=== PATIENT | male | born 1945 | race American Indian/Alaskan Native ===

== ENCOUNTER 2019-02-27 13:50 | Inpatient (IN) | payer MEDICARE, OTHER ==
[~2019-02-27] VITALS: Ht 152.4 cm; Wt 95.4 kg
[~2019-02-27 13:50] MED LIST: ALBU2.5V5 NEB; ALBU3IS INH; ALBU90OI INH; ASPI81CH PO; ATOR40TA PO; Augmentin 875-1 EACH PO; CARV3.125 PO; ENTRESTO 49 MG1 EACH PO; FISH1000 PO; FURO20 PO; GLUCOSAMINE PO; GUAI600T33 PO; HYDACE5 PO; METF850 PO; MSM PO; POTCHL10ER PO; ROSU10TA PO; ROSU5 PO; TORSE20 PO; TRIHYD253B PO
[2019-02-27 14:43] LABS: BASOPHILS ABSOLUTE AUTO 0.02 K/mm3 (0.00-0.23); BASOPHILS PERCENT AUTO 0 % (0-2); EOSINOPHILS ABSOLUTE AUTO 0.12 K/mm3 (0.00-0.68); EOSINOPHILS PERCENT AUTO 2 % (0-6); Hematocrit 40.6 % (37.0-53.0); Hemoglobin 12.9 g/dL (13.5-17.5); IMMATURE GRAN ABSOLUTE AUTO 0.03 K/mm3 (0.00-0.10); IMMATURE GRAN PERCENT AUTO 1 % (0-1); LYMPHOCYTES ABSOLUTE AUTO 0.86 K/mm3 (0.84-5.20); LYMPHOCYTES PERCENT AUTO 15 % (21-46); MONOCYTES ABSOLUTE AUTO 0.48 K/mm3 (0.16-1.47); MONOCYTES PERCENT AUTO 8 % (4-13); Mean Corpuscular HGB 29.5 pg (26.0-34.0); Mean Corpuscular HGB Conc 31.8 g/dL (31.5-36.5); Mean Corpuscular Volume 93 fL (80-100); Mean Platelet Volume 8.6 fL (9.1-12.4); NEUTROPHILS ABSOLUTE AUTO 4.35 K/mm3 (1.96-9.15); NEUTROPHILS PERCENT AUTO 74 % (41-73); Platelet Count 273 K/mm3 (150-400); RDW Coefficient Variation 14.4 % (11.7-14.2); RDW Standard Deviation 49.5 fL (35.1-46.3); Red Blood Cell Count 4.38 M/mm3 (4.30-5.90); White Blood Cell Count 5.86 K/mm3 (4.00-11.30)
[2019-02-27 14:52] LABS: Alanine Aminotransfer (ALT/SGP 29 U/L (12-78); Albumin, Blood 3.2 g/dL (3.4-5.0); Albumin/Globulin Ratio 0.8 (0.8-1.8); Alk Phos 108 U/L (50-136); Anion Gap 7 mmol/L (6-16); Aspartate Aminotrans (AST/SGOT 18 U/L (12-37); Bilirubin, Total 0.5 mg/dL (0.1-1.0); Blood Urea Nitrogen 27 mg/dL (8-24); Bun/Creatinine Ratio 24.1 (12.0-20.0); CO2, Blood 22 mmol/L (21-32); Calcium, Blood 8.3 mg/dL (8.5-10.1); Chloride, Blood 110 mmol/L (98-108); Creatinine, Blood 1.12 mg/dL (0.60-1.20); Globulin, Blood 4.2 g/dL (2.2-4.0); Glomerular Filtration Rate >60 (60-); Glucose, Blood 121 mg/dL (70-99); Potassium, Blood 4.4 mmol/L (3.5-5.5); Sodium, Blood 139 mmol/L (136-145); Total Protein, Blood 7.4 g/dL (6.4-8.2)
--- NOTE | 2019-02-28 03:52 | NUR ---
NOC SHIFT SUMMARY PT ADMITTED THIS NIGHT FOR R SIDED WEAKNESS STARTING SOMETIME AROUND 0400 THE MORNING OF 02/27. CT SCAN DOES NOT SHOW ANY ACUTE EVENTS. HE IS ALERT AND ORIENTED TO PERSON PLACE AND FAMILY. HISTORY OF METH USE. CAME TO FLOOR AT 2004. DAUGHTER AND SON HAVE BEEN IN TO VISIT HIM. HE HAS SLEPT ON AND OFF THIS NIGHT. CONTINENT FOR THE MOST PART BUT HAS WET THE BED. HE IS IRRITABLE WITH CARE. PRESENTLY APPEARS IN NO ACUTE DISTRESS. ABLE TO MOVE RIGHT ARM AND LEG WELL. SUPERVISOR NUT PROCESSING STRENGTH ONLY SLIGHTLY WEAKER ON THAT SIDE. VSS. DAUGHTER CONFIRMS HISTORY OF BLINDNESS IN L EYE AFTER ACCIDENT. WILL CONTINUE TO MONITOR.
[2019-02-28 07:44] LABS: U Amphetamine Screen DETECTED; U Barbituate Screen Not Detected; U Benzodiazapine Screen Not Detected; U Buprenorphine Screen Not Detected; U Cannabinoids Screen Not Detected; U Cocaine Screen Not Detected; U Methadone Screen Not Detected; U Methamphetamine Screen DETECTED; U Opiates Screen Not Detected; U Oxycodone Screen Not Detected; U Phencyclidine Screen Not Detected; U Propoxyphene Screen Not Detected
--- NOTE | 2019-02-28 18:37 | NUR ---
SHIFT SUMMARY: NO ACUTE CHANGES TO REPORT THIS SHIFT. PT A&O; IRRITABLE; UNCOOPERATIVE WITH CARE & INTERVENTIONS-REFUSAL TO USE FWW, FREQUENTLY REMOVING O2 NASAL CANNULA-EDUCATION PROVIDED. PT EVAL THIS SHIFT. WCTM.
--- NOTE | 2019-03-01 04:21 | NUR ---
73 YEAR OLD Male with rt upper extremity hemiparesis has carotid artery duplex and head MRI. MRI positive for acute stroke lt posterior, Less than 50% carotid artery occlusion. Pt has garbled speech but is very quick to respond and has appropriate answers. bHe has very unsteady gait but does insist on ambulationg. Able to feed self and use urinal. 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 Pt had rt facial droop but able to swallow without deficits. Has good strenght bilat ue and bilat le. PT had UA drug screen positive for METH. Has COPD is set up on oxygen 2 l nc prn. Tele monitor shows nsr with 1st degree block and pvcs. Irritable at times but apologizes later.
[2019-03-01 05:58] LABS: Albumin, Blood 2.8 g/dL (3.4-5.0); Anion Gap 8 mmol/L (6-16); Blood Urea Nitrogen 41 mg/dL (8-24); Bun/Creatinine Ratio 33.9 (12.0-20.0); CHOL/HDL RATIO 4.4; CO2, Blood 28 mmol/L (21-32); Calcium, Blood 8.4 mg/dL (8.5-10.1); Chloride, Blood 101 mmol/L (98-108); Cholesterol 154 mg/dL (50-200); Creatinine, Blood 1.21 mg/dL (0.60-1.20); Glomerular Filtration Rate >60 (60-); Glucose, Blood 173 mg/dL (70-99); HDL Cholesterol 35 mg/dL (>39); LDL/HDL RATIO 2.3; Low Density Lipoprotein Chol 81 mg/dL (0-110); Phosphorus, Blood 4.2 mg/dL (2.5-4.9); Potassium, Blood 3.8 mmol/L (3.5-5.5); Sodium, Blood 137 mmol/L (136-145); Triglycerides 189 mg/dL (30-160); Very Low Density Lipoprot Chol 37 mg/dL (6-32)
--- NOTE | 2019-03-01 11:35 | NUR ---
DNR STATUS: PATIENT REPORTS THIS MORNING THAT HE DOESN'T WANT TO BE "HOOKED TO ANY MACHINE" AND THAT HE WOULD LIKE TO BE DNR STATUS. DISCUSSED EACH ELEMENT OF DNR WITH THE PATIENT (CHEST COMPRESSIONS, INTUBATION, MEDICATION). PATIENT REITERATED THAT HE DOESN'T WANT ANY OF THAT. SPOKE WITH DR. NORMAN. NEW ORDER FOR DNR STATUS.
--- NOTE | 2019-03-01 12:33 | NUR ---
Echocardiogram completed.
--- NOTE | 2019-03-01 14:29 | NUR ---
CONSULT WITH DR. NEW: DR. NEW ASKED TO KNOW WHAT THE PATIENT'S ABNORMAL RHYTHM WAS DURING CAROTID DUPLEX YESTERDAY MORNING. PATIENT DID NOT HAVE TELEMETRY AT THAT TIME. SPOKE WITH PCU, PATIENT HAS BEEN IN THE 70S - 80S WITH OCCASIONAL PVCS SINCE THE PLACEMENT OF THE TELEMETRY. DR. NEW INFORMED.
--- NOTE | 2019-03-01 19:36 | NUR ---
END OF SHIFT SUMMARY: PATIENT DENIED PAIN THROUGHOUT SHIFT. PATIENT REPORTS THAT HE IS FEELING STRONGER THAN YESTERDAY. CONTINUES TO HAVE DIFFICULTY WITH FINE MOTOR MOVEMENT IN RIGHT HAND. EQUAL STRENGTH IN LEGS. PATIENT UP TO CHAIR. CONSULTATION CALLED TO DR. NEW (SEE NOTES). PATIENT DENIES NAUSEA, DIZZNESS OR SOB.
--- NOTE | 2019-03-02 04:16 | NUR ---
SHIFT SUMMARY- PT. A&O, NO DISTRESS NOTED. PT. HAS BEEN SITTING UP IN CHAIR T/O THE SHIFT, REFUSING TO RETURN BACK INTO BED. PT. X1 ASSIST WITH WALKER. HAS BEEN USING THE URINAL WHILE UP IN THE CHAIR W/O DIFFICULTY. INSTRUCTED PT. TO CALL FOR ASSISTANCE FOR AMBULATION OR BATHROOM USE, PT. VERBALIZED UNDERSTANDING. CALL LIGHT PLACED WITHIN REACH OF PT. FREQUENT ROUNDINGS MADE ON PT. TO ENSURE SAFETY. WILL CONT TO MONITOR.
[2019-03-02 04:58] LABS: Anion Gap 7 mmol/L (6-16); Blood Urea Nitrogen 36 mg/dL (8-24); Bun/Creatinine Ratio 32.1 (12.0-20.0); CO2, Blood 27 mmol/L (21-32); Calcium, Blood 8.5 mg/dL (8.5-10.1); Chloride, Blood 103 mmol/L (98-108); Creatinine, Blood 1.12 mg/dL (0.60-1.20); Glomerular Filtration Rate >60 (60-); Glucose, Blood 112 mg/dL (70-99); Phosphorus, Blood 3.7 mg/dL (2.5-4.9); Potassium, Blood 4.3 mmol/L (3.5-5.5); Sodium, Blood 137 mmol/L (136-145)
[2019-03-02] MEDS ORDERED: METF500 PO (12:31)
[2019-03-02] MEDS ORDERED: ENTRESTO 24 MG1 EACH PO (12:31)
[2019-03-02] MEDS ORDERED: CLOP75 PO (12:31)
[2019-03-02] MEDS ORDERED: Lipitor20 MG PO (12:31)
[2019-03-02] MEDS ORDERED: ASPI81CH PO (12:32)
--- NOTE | 2019-03-02 14:07 | NUR ---
PATIENT DISCHARGE THE PATIENT WAS DISCHARGED HOME WITH HIS SON, AFTER DISCHARGE INSTRUCTIONS WERE GIVEN TO THE PATIENT. THE PATIENT REFUSED HOME HEALTH ABND WAS VERY NON-COMPLIANT WITH DISCHARGE INSTRUCTIONS. THE PATIENT LEFT THE HOSPITAL VIA WHEELHAIR WITHOUT CONCERN OR COMPLAINT.
== END 2019-03-02 14:06 | disposition home health service (06) | DRG 64 ==
LOC: ER 13:50 → MEDS 17:46 → ENPENDDIS 03-02 12:14 → MEDS 03-02 14:06
PROVIDERS: Emergency Medicine; Internal Medicine; ADMIT Hospitalist
DX: I63.411 Cerebral infarction due to embolism of right middle cerebral artery (principal); J96.21 Acute and chronic respiratory failure with hypoxia; I50.22 Chronic systolic (congestive) heart failure; I11.0 Hypertensive heart disease with heart failure; E86.0 Dehydration; E66.9 Obesity, unspecified; Z68.39 Body mass index [BMI] 39.0-39.9, adult; F15.10 Other stimulant abuse, uncomplicated; J44.9 Chronic obstructive pulmonary disease, unspecified; Z87.891 Personal history of nicotine dependence; E11.9 Type 2 diabetes mellitus without complications; Z79.84 Long term (current) use of oral hypoglycemic drugs; Z79.4 Long term (current) use of insulin
CPT/HCPCS: 36415; 70450; 70551; 71046; 80053; 80061; 80069; 82947; 83036; 85025; 92610; 93005; 93010; 93880; 94760; 97110; 97112; 97116; 97162; 97166; 97530; 99285-25; A9270; C8929; J1650; Q9957

== ENCOUNTER 2019-03-18 21:43 | Inpatient (IN) | payer MEDICARE, OTHER ==
[~2019-03-18] VITALS: Ht 170.2 cm; Wt 99.8 kg
[~2019-03-18 21:43] MED LIST changes: +CLOP75 PO; +ENTRESTO 24 MG1 EACH PO; +Lipitor20 MG PO; +METF500 PO
[2019-03-18 22:49] LABS: BASOPHILS ABSOLUTE AUTO 0.03 K/mm3 (0.00-0.23); BASOPHILS PERCENT AUTO 0 % (0-2); EOSINOPHILS ABSOLUTE AUTO 0.06 K/mm3 (0.00-0.68); EOSINOPHILS PERCENT AUTO 1 % (0-6); Hematocrit 44.3 % (37.0-53.0); Hemoglobin 14.1 g/dL (13.5-17.5); IMMATURE GRAN ABSOLUTE AUTO 0.06 K/mm3 (0.00-0.10); IMMATURE GRAN PERCENT AUTO 1 % (0-1); LYMPHOCYTES ABSOLUTE AUTO 0.74 K/mm3 (0.84-5.20); LYMPHOCYTES PERCENT AUTO 6 % (21-46); MONOCYTES ABSOLUTE AUTO 0.39 K/mm3 (0.16-1.47); MONOCYTES PERCENT AUTO 3 % (4-13); Mean Corpuscular HGB 29.1 pg (26.0-34.0); Mean Corpuscular HGB Conc 31.8 g/dL (31.5-36.5); Mean Corpuscular Volume 92 fL (80-100); Mean Platelet Volume 8.7 fL (9.1-12.4); NEUTROPHILS PERCENT AUTO 89 % (41-73); Platelet Count 305 K/mm3 (150-400); RDW Coefficient Variation 14.7 % (11.7-14.2); RDW Standard Deviation 49.3 fL (35.1-46.3); Red Blood Cell Count 4.84 M/mm3 (4.30-5.90); White Blood Cell Count 11.68 K/mm3 (4.00-11.30)
[2019-03-18 23:07] LABS: Alanine Aminotransfer (ALT/SGP 18 U/L (12-78); Albumin, Blood 3.6 g/dL (3.4-5.0); Albumin/Globulin Ratio 0.8 (0.8-1.8); Alk Phos 135 U/L (50-136); Anion Gap 7 mmol/L (6-16); Aspartate Aminotrans (AST/SGOT 15 U/L (12-37); Bilirubin, Total 0.5 mg/dL (0.1-1.0); Blood Urea Nitrogen 25 mg/dL (8-24); Bun/Creatinine Ratio 21.9 (12.0-20.0); CO2, Blood 24 mmol/L (21-32); Calcium, Blood 8.9 mg/dL (8.5-10.1); Chloride, Blood 105 mmol/L (98-108); Creatinine, Blood 1.14 mg/dL (0.60-1.20); Globulin, Blood 4.7 g/dL (2.2-4.0); Glomerular Filtration Rate >60 (60-); Glucose, Blood 216 mg/dL (70-99); Potassium, Blood 5.6 mmol/L (3.5-5.5); Sodium, Blood 136 mmol/L (136-145); Total Protein, Blood 8.3 g/dL (6.4-8.2)
--- NOTE | 2019-03-19 07:55 | NUR ---
SHIFT SUMMARY PATIENT IS ALERT TO SELF AND PLACE. PT CAME TO ROOM VIA STRETCHER. NG TUBE IN AND ON LOW INTERMITTEN SUCTION. PATIENT ON 2L NASAL CANNULA. PATIENT SLEPT WELL THROUGHOUT THE NIGHT. PT DID WAKE UP ONCE REQUESTING PAIN MEDICATION. MEDICATED ORDERED. NO FURTHER CHANGES NOTED. NG DRAINING WELL.
[2019-03-19 13:42] LABS: U Amphetamine Screen DETECTED; U Barbituate Screen Not Detected; U Benzodiazapine Screen Not Detected; U Buprenorphine Screen Not Detected; U Cannabinoids Screen Not Detected; U Cocaine Screen Not Detected; U Methadone Screen Not Detected; U Methamphetamine Screen DETECTED; U Opiates Screen Not Detected; U Oxycodone Screen Not Detected; U Phencyclidine Screen Not Detected; U Propoxyphene Screen Not Detected
--- NOTE | 2019-03-19 19:55 | NUR ---
SHIFT SUMMARY PT SLEEPING DURING SHIFT REPORT. IVF'S INFUSING PER EMAR. NGT TO LIS WITH APPROX 100cc DRK BRWN LIQUID IN CANISTER. PT THEN UP TO EOB, LEANING OVER BS TABLE WATCHING TV. MORBIDLY OBESE WITH DISTENDED ABD. PT NPO D/T SBO, REQUESTING FOOD AND WATER. PT INFORMED OF NPO STATUS AND LAY BACK DOWN IN BED. PT RESTLESS AND OCCLUDING IV SITE FREQUENTLY. LFA WRAPPED WITH CLOTH AND COBAN. PT MEDICATED X2 THIS SHIFT FOR C/O PAIN. PT REPORTED THE ABD PAIN FROM HIS HERNIA. DR FRANCIS HERE TO ASSESS PT. INFORMED PT PAIN R/T TO BOWELS NOT HERNIA. URINE TOX OBTAINED AND SENT. SX CONSULT CALLED TO DR JANE WHO CAME TO SEE PT THIS EVENING. NEW ORDERS PLACED TO GET PT OOB AND WALKING TID. PT HAD VISITORS IN TODAY A COUPLE OF TIMES. PT HAS BEEN SLEEPING SOUNDLY SINCE VISITORS LEFT. HX OF CHF WITH EF 20-25%, COPD, DM, CKD, CAD AND METH; URINE TOX POSITIVE FOR METH. PER SHIFT REPORT, RECENT STROKE. CALL LT IN REACH. BED ALARM ON FOR SAFETY.
[2019-03-20 04:45] LABS: BASOPHILS ABSOLUTE AUTO 0.01 K/mm3 (0.00-0.23); BASOPHILS PERCENT AUTO 0 % (0-2); EOSINOPHILS ABSOLUTE AUTO 0.11 K/mm3 (0.00-0.68); EOSINOPHILS PERCENT AUTO 3 % (0-6); Hematocrit 40.9 % (37.0-53.0); Hemoglobin 12.8 g/dL (13.5-17.5); IMMATURE GRAN ABSOLUTE AUTO 0.01 K/mm3 (0.00-0.10); IMMATURE GRAN PERCENT AUTO 0 % (0-1); LYMPHOCYTES ABSOLUTE AUTO 0.48 K/mm3 (0.84-5.20); LYMPHOCYTES PERCENT AUTO 13 % (21-46); MONOCYTES ABSOLUTE AUTO 0.55 K/mm3 (0.16-1.47); MONOCYTES PERCENT AUTO 15 % (4-13); Mean Corpuscular HGB 28.4 pg (26.0-34.0); Mean Corpuscular HGB Conc 31.3 g/dL (31.5-36.5); Mean Corpuscular Volume 91 fL (80-100); Mean Platelet Volume 9.1 fL (9.1-12.4); NEUTROPHILS PERCENT AUTO 68 % (41-73); Platelet Count 281 K/mm3 (150-400); RDW Standard Deviation 49.5 fL (35.1-46.3); White Blood Cell Count 3.66 K/mm3 (4.00-11.30)
[2019-03-20 05:06] LABS: Alanine Aminotransfer (ALT/SGP 12 U/L (12-78); Albumin, Blood 2.9 g/dL (3.4-5.0); Albumin/Globulin Ratio 0.7 (0.8-1.8); Alk Phos 85 U/L (50-136); Anion Gap 6 mmol/L (6-16); Aspartate Aminotrans (AST/SGOT 12 U/L (12-37); Bilirubin, Total 0.5 mg/dL (0.1-1.0); Blood Urea Nitrogen 34 mg/dL (8-24); Bun/Creatinine Ratio 31.2 (12.0-20.0); CO2, Blood 25 mmol/L (21-32); Calcium, Blood 7.9 mg/dL (8.5-10.1); Chloride, Blood 108 mmol/L (98-108); Creatinine, Blood 1.09 mg/dL (0.60-1.20); Globulin, Blood 3.9 g/dL (2.2-4.0); Glomerular Filtration Rate >60 (60-); Glucose, Blood 114 mg/dL (70-99); Potassium, Blood 4.4 mmol/L (3.5-5.5); Sodium, Blood 139 mmol/L (136-145); Total Protein, Blood 6.8 g/dL (6.4-8.2)
--- NOTE | 2019-03-20 06:13 | NUR ---
SHIFT SUMMARY NO ACUTE EVENTS OVERNIGHT. PATIENT SLEPT THROUGH OUT SHIFT WITH NO COMPLAINTS OF PAIN. PATIENT ORIENTED X4 BUT UNABLE TO VERBALIZE COHERENT CONVERSATION. NG TUBE TO LOW INTERMITTENT SUCTION. OUTPUT MARKED AT 525ML. APPROX 75 ML OUTPUT TOTAL FOR THE ENTIRE SHIFT.
--- NOTE | 2019-03-20 16:18 | NUR ---
SHIFT SUMMARY NO ACUTE CHANGES. DENIES PAIN, NAUSEA, AND SHORTNESS OF BREATH. NG TUBE REMOVED THIS MORNING. PATIENT TOLERATING CLEAR LIQUID DIET. PATIENT REPORTS NO BM TODAY BUT STATES HE HAD ONE YESTERDAY. PATIENT WALKED IN HALLWAY SEVERAL TIMES THIS SHIFT AND NAPPED THE REST OF SHIFT. CALL LIGHT IN REACH.
[2019-03-21 04:44] LABS: BASOPHILS ABSOLUTE AUTO 0.02 K/mm3 (0.00-0.23); BASOPHILS PERCENT AUTO 0 % (0-2); EOSINOPHILS ABSOLUTE AUTO 0.07 K/mm3 (0.00-0.68); EOSINOPHILS PERCENT AUTO 2 % (0-6); Hematocrit 40.8 % (37.0-53.0); Hemoglobin 12.8 g/dL (13.5-17.5); IMMATURE GRAN ABSOLUTE AUTO 0.02 K/mm3 (0.00-0.10); IMMATURE GRAN PERCENT AUTO 0 % (0-1); LYMPHOCYTES ABSOLUTE AUTO 0.77 K/mm3 (0.84-5.20); LYMPHOCYTES PERCENT AUTO 17 % (21-46); MONOCYTES PERCENT AUTO 11 % (4-13); Mean Corpuscular HGB 28.5 pg (26.0-34.0); Mean Corpuscular HGB Conc 31.4 g/dL (31.5-36.5); Mean Corpuscular Volume 91 fL (80-100); Mean Platelet Volume 8.8 fL (9.1-12.4); NEUTROPHILS ABSOLUTE AUTO 3.25 K/mm3 (1.96-9.15); NEUTROPHILS PERCENT AUTO 70 % (41-73); Platelet Count 245 K/mm3 (150-400); RDW Coefficient Variation 14.8 % (11.7-14.2); RDW Standard Deviation 48.7 fL (35.1-46.3); Red Blood Cell Count 4.49 M/mm3 (4.30-5.90); White Blood Cell Count 4.63 K/mm3 (4.00-11.30)
[2019-03-21 05:06] LABS: Alanine Aminotransfer (ALT/SGP 12 U/L (12-78); Albumin/Globulin Ratio 0.7 (0.8-1.8); Alk Phos 83 U/L (50-136); Anion Gap 7 mmol/L (6-16); Aspartate Aminotrans (AST/SGOT 17 U/L (12-37); Bilirubin, Total 0.5 mg/dL (0.1-1.0); Blood Urea Nitrogen 24 mg/dL (8-24); Bun/Creatinine Ratio 25.6 (12.0-20.0); CO2, Blood 25 mmol/L (21-32); Chloride, Blood 106 mmol/L (98-108); Creatinine, Blood 0.94 mg/dL (0.60-1.20); Globulin, Blood 4.1 g/dL (2.2-4.0); Glomerular Filtration Rate >60 (60-); Glucose, Blood 136 mg/dL (70-99); Sodium, Blood 138 mmol/L (136-145); Total Protein, Blood 7.1 g/dL (6.4-8.2)
--- NOTE | 2019-03-21 05:36 | NUR ---
SHIFT SUMMARY PATIENT SLEPT THROUGHOUT NIGHT MOVING BETWEEN BED AND CHAIR IN ROOM BY SELF. PATIENT HAD LARGE FORMED BOWEL MOVEMENT AND PASSED LARGE AMOUNT OF GAS THROUGH THE NIGHT. PATEINT MORE LUCID THAN PREVIOUS LATRINE CLEANER. AAOX4.
--- NOTE | 2019-03-21 13:11 | NUR ---
DISCHARGE DISCHARGE MEDICATIONS AND INSTRUCTIONS EXPLAINED TO PATIENT. HE STATED UNDERSTANDING. CARE MANAGEMENT WILL CALL PATIENT AT HOME WITH FOLLOW UP APPOINTMENT TIME. IV REMOVED WITHOUT DIFFICULTY. BELONGINGS WITH PATIENT. PATIENT TRANSFERED TO PRIVATE VEHICLE VIA WHEELCHAIR.
== END 2019-03-21 12:52 | disposition home or self-care (01) | DRG 389 ==
LOC: ER 21:43 → MEDS 03-19 02:36 → ER 03-19 03:22 → MEDS 03-19 03:38 → ENPENDDIS 03-21 11:38 → MEDS 03-21 12:52
PROVIDERS: Emergency Medicine; Internal Medicine; ADMIT Internal Medicine
PROC: 0D9670Z Drainage of Stomach with Drainage Device, Via Natural or Artificial Opening (ICD-10-PCS; principal; 2019-03-19)
DX: K56.609 Unspecified intestinal obstruction, unspecified as to partial versus complete obstruction (principal); I50.22 Chronic systolic (congestive) heart failure; I13.0 Hypertensive heart and chronic kidney disease with heart failure and stage 1 through stage 4 chronic kidney disease, or unspecified chronic kidney disease; I42.9 Cardiomyopathy, unspecified; E78.5 Hyperlipidemia, unspecified; J44.9 Chronic obstructive pulmonary disease, unspecified; N18.2 Chronic kidney disease, stage 2 (mild); I25.10 Atherosclerotic heart disease of native coronary artery without angina pectoris; E11.22 Type 2 diabetes mellitus with diabetic chronic kidney disease; Z66 Do not resuscitate; E66.01 Morbid (severe) obesity due to excess calories; Z68.34 Body mass index [BMI] 34.0-34.9, adult; Z87.891 Personal history of nicotine dependence; Z91.013 Allergy to seafood; Z86.73 Personal history of transient ischemic attack (TIA), and cerebral infarction without residual deficits; Z79.84 Long term (current) use of oral hypoglycemic drugs; Z79.02 Long term (current) use of antithrombotics/antiplatelets; Z79.82 Long term (current) use of aspirin; Z79.899 Other long term (current) drug therapy
CPT/HCPCS: 36415; 74177; 80053; 82947; 83036; 84132; 85025; 93005; 93010; 96361; 96374-59; 96375; 96376; 99285-25; J1650; J1815; J1885; J2405; J3010; J7030; Q9967

== ENCOUNTER 2019-08-13 20:15 | Emergency (ER) | payer MEDICARE, OTHER | END 2019-08-13 21:30 | disposition left against medical advice (07) | LOC: ER 20:15 | DX: Z53.21 Procedure and treatment not carried out due to patient leaving prior to being seen by health care provider (principal) ==

== ENCOUNTER → 2019-08-15 | Outpatient (CLI) | payer MEDICARE, OTHER ==
[2019-08-15 19:15] LABS: BASOPHILS ABSOLUTE AUTO 0.03 K/mm3 (0.00-0.23); BASOPHILS PERCENT AUTO 0 % (0-2); EOSINOPHILS PERCENT AUTO 1 % (0-6); Hematocrit 41.4 % (37.0-53.0); IMMATURE GRAN ABSOLUTE AUTO 0.06 K/mm3 (0.00-0.10); IMMATURE GRAN PERCENT AUTO 1 % (0-1); LYMPHOCYTES PERCENT AUTO 10 % (21-46); MONOCYTES ABSOLUTE AUTO 0.45 K/mm3 (0.16-1.47); MONOCYTES PERCENT AUTO 7 % (4-13); Mean Corpuscular HGB 30.2 pg (26.0-34.0); Mean Corpuscular HGB Conc 31.4 g/dL (31.5-36.5); Mean Corpuscular Volume 96 fL (80-100); Mean Platelet Volume 9.2 fL (9.1-12.4); NEUTROPHILS PERCENT AUTO 81 % (41-73); Platelet Count 220 K/mm3 (150-400); RDW Coefficient Variation 14.6 % (11.7-14.2); RDW Standard Deviation 51.8 fL (35.1-46.3); White Blood Cell Count 6.94 K/mm3 (4.00-11.30)
[2019-08-15 19:28] LABS: Albumin, Blood 3.3 g/dL (3.4-5.0); Albumin/Globulin Ratio 0.8 (0.8-1.8); Bilirubin, Total 0.3 mg/dL (0.1-1.0); Bun/Creatinine Ratio 35.1 (12.0-20.0); Calcium, Blood 8.5 mg/dL (8.5-10.1); Creatinine, Blood 1.34 mg/dL (0.60-1.20); Globulin, Blood 4.3 g/dL (2.2-4.0); Potassium, Blood 4.7 mmol/L (3.5-5.5); Total Protein, Blood 7.6 g/dL (6.4-8.2)
== END ==
LOC: LAB SHORT 18:12 → LAB 18:12
PROVIDERS: Nurse Practitioner
DX: R60.0 Localized edema (principal)
CPT/HCPCS: 80053; 83880; 85025

== ENCOUNTER 2020-04-14 20:54 | Inpatient (IN) | payer MEDICARE, OTHER ==
[~2020-04-14] VITALS: Ht 165.1 cm; Wt 111.3 kg
[2020-04-14 21:48] LABS: BASOPHILS ABSOLUTE AUTO 0.05 K/mm3 (0.00-0.23); BASOPHILS PERCENT AUTO 0 % (0-2); Hemoglobin 15.6 g/dL (13.5-17.5); MONOCYTES ABSOLUTE AUTO 0.57 K/mm3 (0.16-1.47)
[2020-04-14 21:53] LABS: EOSINOPHILS ABSOLUTE AUTO 0.08 K/mm3 (0.00-0.68); EOSINOPHILS PERCENT AUTO 1 % (0-6); Hematocrit 46.6 % (37.0-53.0); IMMATURE GRAN PERCENT AUTO 1 % (0-1); LYMPHOCYTES ABSOLUTE AUTO 0.76 K/mm3 (0.84-5.20); LYMPHOCYTES PERCENT AUTO 6 % (21-46); MONOCYTES PERCENT AUTO 5 % (4-13); Mean Corpuscular HGB 30.8 pg (26.0-34.0); Mean Corpuscular HGB Conc 33.5 g/dL (31.5-36.5); Mean Corpuscular Volume 92 fL (80-100); NEUTROPHILS ABSOLUTE AUTO 10.91 K/mm3 (1.96-9.15); NEUTROPHILS PERCENT AUTO 88 % (41-73); RDW Coefficient Variation 14.2 % (11.7-14.2); RDW Standard Deviation 47.6 fL (35.1-46.3); Red Blood Cell Count 5.07 M/mm3 (4.30-5.90); White Blood Cell Count 12.47 K/mm3 (4.00-11.30)
[2020-04-14 21:56] LABS: Mean Platelet Volume 9.9 fL (9.1-12.4); Platelet Count 356 K/mm3 (150-400)
[2020-04-14 22:19] LABS: Alanine Aminotransfer (ALT/SGP 29 U/L (12-78); Albumin, Blood 3.3 g/dL (3.4-5.0); Albumin/Globulin Ratio 0.6 (0.8-1.8); Alk Phos 134 U/L (50-136); Anion Gap 11 mmol/L (6-16); Aspartate Aminotrans (AST/SGOT 42 U/L (12-37); Bilirubin, Total 0.7 mg/dL (0.1-1.0); Blood Urea Nitrogen 86 mg/dL (8-24); Bun/Creatinine Ratio 30.6 (12.0-20.0); CO2, Blood 17 mmol/L (21-32); Chloride, Blood 101 mmol/L (98-108); Creatinine, Blood 2.81 mg/dL (0.60-1.20); Globulin, Blood 5.3 g/dL (2.2-4.0); Glomerular Filtration Rate 23 (60-); Glucose, Blood 364 mg/dL (70-99); Sodium, Blood 129 mmol/L (136-145); Total Protein, Blood 8.6 g/dL (6.4-8.2)
[2020-04-14 22:53] LABS: Magnesium, Blood 2.4 mg/dL (1.6-2.4)
[2020-04-14 23:05] LABS: Troponin I <0.015 ng/mL (0.000-0.040)
[2020-04-15 01:40] LABS: Source, Urine Clean Catch
[2020-04-15 01:45] LABS: Bilirubin, Urine Neg (Neg); Blood, Urine Neg (Neg); Glucose Qualitative, Urine 4+ (Neg); Ketones, Urine Neg (Neg); Leukocyte Esterase, Urine Neg (Neg); Nitrite, Urine Neg (Neg); Protein, Urine Neg (Neg); Specific Gravity, Urine 1.015 (1.003-1.022); Urobilinogen, Urine NORM (Normal)
[2020-04-15 01:50] LABS: Appearance, Urine Clear (Clear); Color, Urine Yellow (P-Yellow)
[2020-04-15 02:24] LABS: U Amphetamine Screen Not Detected; U Barbituate Screen Not Detected; U Benzodiazapine Screen Not Detected; U Buprenorphine Screen Not Detected; U Cannabinoids Screen Not Detected; U Cocaine Screen Not Detected; U Methadone Screen Not Detected; U Methamphetamine Screen Not Detected; U Opiates Screen Not Detected; U Oxycodone Screen Not Detected; U Phencyclidine Screen Not Detected; U Propoxyphene Screen Not Detected
[2020-04-15 03:57] LABS: BASOPHILS ABSOLUTE AUTO 0.03 K/mm3 (0.00-0.23); BASOPHILS PERCENT AUTO 0 % (0-2); EOSINOPHILS ABSOLUTE AUTO 0.05 K/mm3 (0.00-0.68); EOSINOPHILS PERCENT AUTO 1 % (0-6); Hematocrit 46.9 % (37.0-53.0); Hemoglobin 15.5 g/dL (13.5-17.5); IMMATURE GRAN ABSOLUTE AUTO 0.08 K/mm3 (0.00-0.10); IMMATURE GRAN PERCENT AUTO 1 % (0-1); LYMPHOCYTES ABSOLUTE AUTO 0.25 K/mm3 (0.84-5.20); LYMPHOCYTES PERCENT AUTO 3 % (21-46); MONOCYTES ABSOLUTE AUTO 0.48 K/mm3 (0.16-1.47); MONOCYTES PERCENT AUTO 6 % (4-13); Mean Corpuscular HGB 30.8 pg (26.0-34.0); Mean Corpuscular Volume 93 fL (80-100); Mean Platelet Volume 9.3 fL (9.1-12.4); NEUTROPHILS ABSOLUTE AUTO 7.57 K/mm3 (1.96-9.15); NEUTROPHILS PERCENT AUTO 89 % (41-73); Platelet Count 289 K/mm3 (150-400); RDW Coefficient Variation 14.1 % (11.7-14.2); RDW Standard Deviation 48.7 fL (35.1-46.3); Red Blood Cell Count 5.03 M/mm3 (4.30-5.90); White Blood Cell Count 8.46 K/mm3 (4.00-11.30)
[2020-04-15 04:14] LABS: Albumin, Blood 3.3 g/dL (3.4-5.0); Anion Gap 8 mmol/L (6-16); Blood Urea Nitrogen 89 mg/dL (8-24); Bun/Creatinine Ratio 32.2 (12.0-20.0); CO2, Blood 24 mmol/L (21-32); Calcium, Blood 8.9 mg/dL (8.5-10.1); Chloride, Blood 102 mmol/L (98-108); Creatinine, Blood 2.76 mg/dL (0.60-1.20); Glomerular Filtration Rate 24 (60-); Glucose, Blood 251 mg/dL (70-99); Phosphorus, Blood 3.8 mg/dL (2.5-4.9); Potassium, Blood 5.9 mmol/L (3.5-5.5); Sodium, Blood 134 mmol/L (136-145)
--- NOTE | 2020-04-15 05:01 | NUR ---
SHIFT SUMMARY: PATIENT ARRIVED TO PCU 10 AT APPROX 0147 VIA GURNEY FROM ER. PATIENT ABLE TO TRANSFER FROM RFLAGLER TO BED WITH SBA. PATIENT STATED THAT HIS PAIN WAS GONE AND HE WOULD HAVE DIFFICULTY WITH AN NG HE HAS HAD HIS NOSE BROKEN MORE THAN 8 TIMES. PATIENT DENIES NAUSEA. VSS, SKIN IS C/D/I BUT HAS SEVERAL OLD SMALL BRUSES AND SCABS. PATIENT ALERT AND ORIENTED AND ADMISSION COMPLETED. PATIENT ORIENTED TO ROOM, CALL LIGHT AND HOSPITAL POLICIES. BED LOW AND LOCKED AND PATIENT COMPLIANT WITH CARE AT THIS TIME.
[2020-04-15 08:31] LABS: Albumin, Blood 3.2 g/dL (3.4-5.0); Anion Gap 7 mmol/L (6-16); Blood Urea Nitrogen 86 mg/dL (8-24); Bun/Creatinine Ratio 35.8 (12.0-20.0); CO2, Blood 23 mmol/L (21-32); Calcium, Blood 8.8 mg/dL (8.5-10.1); Chloride, Blood 105 mmol/L (98-108); Glomerular Filtration Rate 28 (60-); Glucose, Blood 241 mg/dL (70-99); Phosphorus, Blood 3.8 mg/dL (2.5-4.9); Potassium, Blood 5.2 mmol/L (3.5-5.5); Sodium, Blood 135 mmol/L (136-145)
--- NOTE | 2020-04-15 17:41 | NUR ---
NO ACUTE EVENTS THIS SHIFT, VSS. PATIENT EXPERIENCED ABDOMINAL PAIN/NAUSEA T/O THIS SHIFT. PATIENT VOMITED SMALL AMOUNTS INTERMITTENTLY, ABLE TO PASS GAS. POTASSIUM LEVEL IMPROVED THIS SHIFT, 5.9 DOWN TO 5.2. PATIENT REMAINS NPO, IV FLUIDS CONTINUED. SURGICAL CONSULT PENDING.
--- NOTE | 2020-04-15 21:00 | NUR ---
ASSUMPTION OF CARE PT SLEEPING IN BED, VSS. BT x4 QUADRANTS, NG IN PLACE TO LIS, BROWN TO GREEN OUTPUT. PT CONTINENT OF BOWEL AND BLADDER, URINAL AT BEDSIDE. CALL LIGHT WITHIN REACH.
--- NOTE | 2020-04-16 | NUR ---
PT AWAKE, ORIENTED x4, DENIES PAIN OR NAUSEA. REPORTS HAVING A DRY MOUTH, ORAL SWABS PROVIDED.
[2020-04-16 04:21] LABS: BASOPHILS ABSOLUTE AUTO 0.04 K/mm3 (0.00-0.23); BASOPHILS PERCENT AUTO 1 % (0-2); Hematocrit 48.4 % (37.0-53.0); Hemoglobin 15.6 g/dL (13.5-17.5); LYMPHOCYTES ABSOLUTE AUTO 0.34 K/mm3 (0.84-5.20); LYMPHOCYTES PERCENT AUTO 5 % (21-46); MONOCYTES ABSOLUTE AUTO 0.53 K/mm3 (0.16-1.47); MONOCYTES PERCENT AUTO 8 % (4-13); Mean Corpuscular HGB 30.7 pg (26.0-34.0); Mean Corpuscular HGB Conc 32.2 g/dL (31.5-36.5); Mean Corpuscular Volume 95 fL (80-100); Mean Platelet Volume 9.6 fL (9.1-12.4); Platelet Count 304 K/mm3 (150-400); RDW Coefficient Variation 14.3 % (11.7-14.2); RDW Standard Deviation 50.2 fL (35.1-46.3); Red Blood Cell Count 5.08 M/mm3 (4.30-5.90); White Blood Cell Count 6.35 K/mm3 (4.00-11.30)
[2020-04-16 04:23] LABS: EOSINOPHILS ABSOLUTE AUTO 0.03 K/mm3 (0.00-0.68); EOSINOPHILS PERCENT AUTO 1 % (0-6); IMMATURE GRAN ABSOLUTE AUTO 0.02 K/mm3 (0.00-0.10); IMMATURE GRAN PERCENT AUTO 0 % (0-1); NEUTROPHILS ABSOLUTE AUTO 5.39 K/mm3 (1.96-9.15); NEUTROPHILS PERCENT AUTO 85 % (41-73)
[2020-04-16 04:36] LABS: Albumin, Blood 3.1 g/dL (3.4-5.0); Anion Gap 6 mmol/L (6-16); Blood Urea Nitrogen 86 mg/dL (8-24); Bun/Creatinine Ratio 43.7 (12.0-20.0); CO2, Blood 27 mmol/L (21-32); Calcium, Blood 8.8 mg/dL (8.5-10.1); Chloride, Blood 108 mmol/L (98-108); Creatinine, Blood 1.97 mg/dL (0.60-1.20); Glomerular Filtration Rate 35 (60-); Glucose, Blood 229 mg/dL (70-99); Magnesium, Blood 2.7 mg/dL (1.6-2.4); Phosphorus, Blood 3.6 mg/dL (2.5-4.9); Potassium, Blood 4.7 mmol/L (3.5-5.5); Sodium, Blood 141 mmol/L (136-145)
[2020-04-16 05:03] LABS: BAND PERCENT MAN 27 % (0-8); BASOPHILS PERCENT MAN 0 % (0-2); EOSINOPHILS PERCENT MAN 0 % (0-6); LYMPHOCYTES ABSOLUTE MAN 0.44 K/mm3 (0.84-5.20); LYMPHOCYTES PERCENT MAN 7 % (21-46); MONOCYTES ABSOLUTE MAN 0.38 K/mm3 (0.16-1.47); MONOCYTES PERCENT MAN 6 % (4-13); NEUTROPHILS ABSOLUTE MAN 5.52 K/mm3 (1.96-9.15); SEG NEUTROPHILS PERCENT MAN 60 % (41-73); TOTAL CELLS COUNTED 100
--- NOTE | 2020-04-16 06:16 | NUR ---
SHIFT SUMMARY NO ACUTE CHANGES THIS SHIFT. PT SLEPT T/O SHIFT, AWAKE FOR BREIF PERIODS. PT REPORTED INCREASED PAIN THIS AM, PRN FENTANYL ADEQUATE FOR PAIN MANAGEMENT. VSS. NGT REMAINS IN PLACE TO LIS WITH APPROX 450ml BROWN TO GREEN BILE OUTPUT. PT AMBULATES WELL WITH SBA, NEEDS ASSISTANCE WITH TUBES/LINES. CBG STABLE. ORAL SWABS PROVIDED TO PT T/O NIGHT FOR REPORT OF DRY MOUTH.
--- NOTE | 2020-04-16 12:04 | NUR ---
TRANSFER OF CARE REPORT GIVEN TO LETY MCFARLAND ON SURGICAL FLOOR. PT TRANSFERRED TO ROOM 227. BELONGINGS GATHERED AND TRANSFERRED WITH PT. NG WAS CLAMPED FOR TRANSPORT.
--- NOTE | 2020-04-16 12:26 | NUR ---
TRANSFER FROM PCU TO SURGICAL, A&OX4, VSS, CBG Q6, NG LIS, NS @ 100 MLS/HR, STAND TRANSFER FROM TO BED; PT WC PARKED IN CORNER OF ROOM; PT REP PASSING FLATUS, DENIES N&V, DENIES PAIN, VOIDING WELL/URINAL, AMBULATION SBA FOR SAFETY.
--- NOTE | 2020-04-16 17:51 | NUR ---
SHIFT SUMMARY PT A&OX4, DNR L WRIST, VSS, CBG Q6. NGT @ LIS, 400 MLS DK GREEN OUT, DENIES ABD PAIN AND N&V AT THIS TIME. PT REP PASSING FLATUS. VOIDING. SBA TO CHAIR/BED. NS @ 100 MLS/HR. PT'S FRIEND TOOK WHEELCHAIR HOME WITH HER TODAY. WILL REPORT TO ONCYOVANY FUENTES RN.
--- NOTE | 2020-04-16 23:11 | NUR ---
PATIENT TOOK A SHOWER, AND ACCIDENTALLY REMOVED THE NG TUBE WHILE DRYING SELF. NG TUBE REPLACED, PLACEMENT CHECKED WITH AIR BOLUS AND WITH SUCTION OF LARGE AMOUNT OF GI CONTENTS. NT TO LIS. PATIENT HAS PUT OUT 400CC OF GREEN/BROWN FLUID SINCE DAY SHIFT TOTALS. PATIENT HAS ALSO HAS BEEN HAVING FLATUS AND HAD ONE SMALL FORMED STOOL THIS SHIFT. CURRENTLY UP IN CHAIR. CALL LIGHT IN REACH.
[2020-04-17 03:46] LABS: BASOPHILS ABSOLUTE AUTO 0.02 K/mm3 (0.00-0.23); BASOPHILS PERCENT AUTO 0 % (0-2); EOSINOPHILS ABSOLUTE AUTO 0.06 K/mm3 (0.00-0.68); EOSINOPHILS PERCENT AUTO 1 % (0-6); Hematocrit 49.2 % (37.0-53.0); Hemoglobin 15.6 g/dL (13.5-17.5); IMMATURE GRAN ABSOLUTE AUTO 0.04 K/mm3 (0.00-0.10); IMMATURE GRAN PERCENT AUTO 1 % (0-1); LYMPHOCYTES ABSOLUTE AUTO 0.55 K/mm3 (0.84-5.20); LYMPHOCYTES PERCENT AUTO 9 % (21-46); MONOCYTES ABSOLUTE AUTO 0.69 K/mm3 (0.16-1.47); MONOCYTES PERCENT AUTO 11 % (4-13); Mean Corpuscular HGB 30.2 pg (26.0-34.0); Mean Corpuscular HGB Conc 31.7 g/dL (31.5-36.5); Mean Corpuscular Volume 95 fL (80-100); Mean Platelet Volume 9.3 fL (9.1-12.4); NEUTROPHILS ABSOLUTE AUTO 5.01 K/mm3 (1.96-9.15); NEUTROPHILS PERCENT AUTO 79 % (41-73); Platelet Count 304 K/mm3 (150-400); RDW Coefficient Variation 14.4 % (11.7-14.2); RDW Standard Deviation 50.6 fL (35.1-46.3); Red Blood Cell Count 5.16 M/mm3 (4.30-5.90); White Blood Cell Count 6.37 K/mm3 (4.00-11.30)
[2020-04-17 04:04] LABS: Albumin/Globulin Ratio 0.6 (0.8-1.8); Bilirubin, Total 0.4 mg/dL (0.1-1.0); Bun/Creatinine Ratio 44.5 (12.0-20.0); Calcium, Blood 8.8 mg/dL (8.5-10.1); Creatinine, Blood 1.73 mg/dL (0.60-1.20); Globulin, Blood 5.1 g/dL (2.2-4.0); Magnesium, Blood 2.7 mg/dL (1.6-2.4); Phosphorus, Blood 2.7 mg/dL (2.5-4.9); Potassium, Blood 4.2 mmol/L (3.5-5.5); Total Protein, Blood 8.1 g/dL (6.4-8.2)
--- NOTE | 2020-04-17 04:45 | NUR ---
PATIENT HAS HAD A SHOWER TONIGHT, SAT IN A CHAIR FOR MAJORITY OF SHIFT. HE HAS NOT HAD ANY PAIN TONIGHT. ONE SMALL FORMED BM, FLATUS. ABDOMEN IS ROTUND NORMALLY, PATIENT STATES THAT IT IS ALSO MORE DISTENDED THAN NORMAL. OBVIOUS HERNIA MID LEFT ABDOMEN. PATIENT USING ICED MOUTH SWABS FOR COMFORT, WITH AN OCCASIONAL ICE CHIP TO WET MOUTH. INDEPENDENT FROM BED TO CHAIR AND CHAIR TO TOILET. PATIENT INSTRUCTED TO NOT FLUSH IF HE HAS A BM, FOR THE NURSE TO ASSESS STOOL. NO ACUTE CHANGES. CALL LIGHT IN REACH.
--- NOTE | 2020-04-17 09:39 | NUR ---
NGT CLAMPED AT THIS TIME PER DR. MANE
--- NOTE | 2020-04-17 11:50 | NUR ---
NGT DC'D AT THIS TIME PER DR. ORTIZ. WILL CTM
--- NOTE | 2020-04-17 17:11 | NUR ---
SUMMARY: PT HAS DONE WELL TODAY. HAS DENIED PAIN, N/V. CURRENTLY TAKING IN CLEAR LIQ AND TOLERATING. WILL ADVANCE TO REGULAR FOR DINNER PER DR. ORTIZ. PT INDEPENDENT IN ROOM, VSS. WILL CTM
--- NOTE | 2020-04-17 19:52 | NUR ---
PT IN ACUTE ONSET 05/27 ABD PAIN WITH N/V. CALLED DR. GARRETT, NEW ORDER FOR NGT AND THEN ABD CT SCAN, DILAUDID ALSO ORDERED FOR PAIN CONTROL.
--- NOTE | 2020-04-17 20:22 | NUR ---
PLACED 14F NGT DOWN LEFT NARE. HAD SOME DIFFICULTY WITH COILING. DID NEED TO IRRIGATE FOR LARGE CHUCKS OF DRK BROWN SEDIMENT. NOW FLOWING WELL ON LIS. PUT ORDER IN FOR ABD CT. PT BEING MEDICATED WITH DILAUDED PER RN.
--- NOTE | 2020-04-17 22:34 | NUR ---
DR BARBOSA TO PTS ROOM AFTER RECEIVING CT RESULTS AND IS TAKING PT TO OR.NATHALIA TOVAR ICU PSYCHOLOGIST SOCIAL AT BEDSIDE PT IS GOING TO ICU BED 13 POSTOP REPORT GIVEN, PT HAS NEG COVID TEST,NEW POWER GLIDE IN PLACE RUE,SCDS ON,HAS VOIDED,CBG COMPLETED, PT NPO PENDING ARRIVBAL OF OR CREW.
--- NOTE | 2020-04-17 23:00 | NUR ---
SUMMARY PT CURRENTLY IN OR. ORESTES JEFFERSON RN-ICU ROUNDED WELL.
--- NOTE | 2020-04-18 00:32 | NUR ---
ASSESSMENT/RECEIVED FROM OR PT ARRIVED VIA BED FROM OR WITH RN AND DR TURCIOS. PT INTUBATED AND ON MECH VENT. RT AT BEDSIDE. VENT SETTINGS AC 16 TV 450 PEEP 5 FIO2 50%. LUNGS CLEAR BUT DECREASED THROUGHOUT. ET TUBE 7.5, 23 AT TEETH. RT RETAPING ET TUBE. XRAY CALLED FOR ET TUBE COMFIRMATION. HEART RATE TACHY 110-120. TRACE LOWER EXT EDEMA BILAT. SCD'S ON. BT ABSENT. MIDLINE DRSG WITH WOUND VAC INTACT. NO DRAINAGE. IV 20G TO RIGHT HAND SALINE LOCKED, SITE CLEAR. POWER GLIDE TO RIGHT UPPER ARM CLEAR. WAGGONER CATH PATENT WITH YELLOW URINE IN TUBING. PT NOT RESPONDING TO STIMULI.
--- NOTE | 2020-04-18 01:00 | NUR ---
FAMILY DAUGHTER TO BEDSIDE. RESTRAINTS, VENT AND SEDATION EXPLAINED TO DAUGHTER. DAUGHTER HOME FOR THE NIGHT. BILAT SOFT WRIST RESTRAINTS ON.
--- NOTE | 2020-04-18 01:23 | NUR ---
ET TUBE PLACEMENT DR MONROY COMFIRMED ET TUBE PLACEMENT
--- NOTE | 2020-04-18 03:00 | NUR ---
CENTRAL LINE DR ONEILL INTO SEE PT. PT STARTED ON LEVOPHED. CENTRAL LINE PLACED TO LEFT IJ BY DR ONEILL. SITE CONFIRMED WITH CXR.
--- NOTE | 2020-04-18 03:30 | NUR ---
ABG/VENT CHANGES RT REPORT CRITICAL PH 7.[address] ONEILL. VENT CHANGES AC 22 TV 500 PEEP 5 FIO2 80%. LUNGS REMAIN CLEAR BUT DECREASED THROUGHOUT. 2 LITER NS BOLUS GIVEN PER DR ONEILL DUE TO HYPOTENSION.
[2020-04-18 03:31] LABS: PO2 Arterial 91.8 mmHg (80-100); pH Blood Arterial 7.17 (7.35-7.45)
[2020-04-18 04:07] LABS: Hematocrit 48.3 % (37.0-53.0); Mean Corpuscular HGB 30.7 pg (26.0-34.0); Mean Corpuscular HGB Conc 31.1 g/dL (31.5-36.5); Mean Corpuscular Volume 99 fL (80-100); Mean Platelet Volume 9.7 fL (9.1-12.4); Platelet Count 312 K/mm3 (150-400); RDW Coefficient Variation 14.6 % (11.7-14.2); RDW Standard Deviation 53.5 fL (35.1-46.3); Red Blood Cell Count 4.88 M/mm3 (4.30-5.90); White Blood Cell Count 10.72 K/mm3 (4.00-11.30)
[2020-04-18 04:26] LABS: Albumin, Blood 1.9 g/dL (3.4-5.0); Bilirubin, Total 0.7 mg/dL (0.1-1.0); Bun/Creatinine Ratio 31.2 (12.0-20.0); Calcium, Blood 7.3 mg/dL (8.5-10.1); Creatinine, Blood 2.21 mg/dL (0.60-1.20); Magnesium, Blood 2.1 mg/dL (1.6-2.4); Phosphorus, Blood 4.5 mg/dL (2.5-4.9); Potassium, Blood 3.8 mmol/L (3.5-5.5)
[2020-04-18 04:30] LABS: Albumin/Globulin Ratio 0.5 (0.8-1.8); Globulin, Blood 3.7 g/dL (2.2-4.0)
[2020-04-18 04:31] LABS: Total Protein, Blood 5.6 g/dL (6.4-8.2)
[2020-04-18 06:01] LABS: BAND PERCENT MAN 13 % (0-8); BASOPHILS PERCENT MAN 0 % (0-2); EOSINOPHILS PERCENT MAN 1 % (0-6); LYMPHOCYTES ABSOLUTE MAN 0.21 K/mm3 (0.84-5.20); LYMPHOCYTES PERCENT MAN 2 % (21-46); METAMYELOCYTE ABSOLUTE MAN 0.21 K/mm3 (0.00-0.00); METAMYELOCYTE PERCENT MAN 2 % (0-0); MONOCYTES ABSOLUTE MAN 1.07 K/mm3 (0.16-1.47); MONOCYTES PERCENT MAN 10 % (4-13); NEUTROPHILS ABSOLUTE MAN 9.11 K/mm3 (1.96-9.15); SEG NEUTROPHILS PERCENT MAN 72 % (41-73); TOTAL CELLS COUNTED 100
--- NOTE | 2020-04-18 06:28 | NUR ---
SHIFT SUMMARY PT TRANSFERED TO ICU FROM OR ON A VENT. CURRENT VENT SETTINGS AC 22 TV 500 PEEP 5 FIO2 80%. LUNGS CLEAR BUT DECREASED. DR ONEILL INTO SEE PT. CENTRAL LINE PLACEMENT TO LEFT IJ. PT STARTED ON LEVOPHED AND VASOPRESSIN DUE TO HYPOTENSION. CURRENT LEVOPHED AT 12 MCQ/MIN. PT SEDATED WITH PROPOFOL AT 20 MCQ/KG/MIN. WAGGONER PATENT DRAINING YELLOW URINE, 100 ML OUT FOR THE NIGHT. BILAT SOFT WRIST RESTRAINTS ON. PT TURNED Q2HRS. MIDLINE INCISION WITH WOUND VAC. REPORT TO ON COMING NURSE
--- NOTE | 2020-04-18 07:15 | NUR ---
ASSUMED CODE RECIEVED REPORT FROM LETY SLOAN. PT IS INTUBATED WITH 7.5 ETT, 23 @ LIP. VENT IS AT AC 22/500/5/80%. CURRENT GTTPs: PROPOFOL 20 MCG/KG/MIN, LEVO 12 MCG/MIN, VASO 0.04 UNITS/MIN AND NS 100 ML/HR. PT HAS BILATERAL SCDs, A PATENT WAGGONER WITH A MINIMAL AMOUNT OF URINE, AND SWB RESTRAINS SECURED TO PT AND BED. PT HAS LEFT IJ CVC, WITH CVP MONITORING; RIGHT UPPER ARM PG, AND A RIGHT HAND PERIPHERAL, SITES ALL LOOK CDI. PT IN SINUS TACH, RATE: 113, 94% SPO2, BP IS SOFT, BUT MAP > 60.
[2020-04-18 11:19] LABS: Source, Urine Catheter
[2020-04-18 11:32] LABS: Blood, Urine 2+ (Neg); Glucose Qualitative, Urine 2+ (Neg); Ketones, Urine 1+ (Neg); Leukocyte Esterase, Urine 1+ (Neg); Nitrite, Urine Neg (Neg); Protein, Urine 2+ (Neg); Specific Gravity, Urine 1.025 (1.003-1.022); Urobilinogen, Urine 2+ (Normal)
[2020-04-18 11:42] LABS: Appearance, Urine Hazy (Clear); Bilirubin, Urine 1+ (Neg); Color, Urine Amber (P-Yellow)
[2020-04-18 11:43] LABS: Amorphous Light (0-Heavy); Bacteria Few /hpf; Squamous Epithelial Cells Few /hpf (Few)
[2020-04-18 12:13] LABS: PCO2 Arterial 34.3 mmHg (35-45); pH Blood Arterial 7.32 (7.35-7.45)
[2020-04-18 14:29] LABS: Hematocrit 49.2 % (37.0-53.0); Hemoglobin 15.4 g/dL (13.5-17.5)
--- NOTE | 2020-04-18 16:00 | NUR ---
Spoke with Bedside RN Michelle and discussed case. Michelle expresses concerns regarding Pt's code status. Michelle reports Pt was adamant regarding being a DNR and was written on Pt's blood consent form stating not wanting life sustaining treatment. Pt currently remains a full code. Discussed case with Franki Kaplan. With two out of station documententation of Pt's wishes, consideration of changing code status to his wishes would be appropriate once out of the window from the risk of procedure. Spoke with Dr Reyes and discussed case. Dr Reyes reports plan to change Pt's code status back to DNR and will call daughter with update on Pt's condition and plan. Palliative Care will remain available for therapeutic and supportive visits.
--- NOTE | 2020-04-18 16:45 | NUR ---
UPDAT PT'S BP REMAINS SOFT AFTER 500 ML BOLUS, LEVOPHED UP TO 23 MCG/MIN, AND VASO REMAINS ON AT 0.04 UNITS/MIN. DR. ONEILL ORDERED 1 FULL LITER NS TO BOLUS IN, CURRENTLY INFUSING, IN HOPES WE CAN TITRATE DOWN THE LEVOPHED. NOT MUCH CHANGE IN SKIN, FEET ARE STILL QUITE DUSKY/COOL, EXTREMITY PULSES ARE DOPPABLE, AND MINIMAL SWELLING. ABDOMEN IS RIGID/DISTENDED, MIDLINE INSICION WITH ELANA DRESSING HAS A SLIGHTLY MORE SANGUINOUS DRAINAGE - BUT IS NOT SATURATED, OR WET ON THE OUTSIDE. THE HR INCREASED SLIGHTLY FROM THIS MORNING, AND WITH STRUGGLING WITH BP - WE DID CHECK AN H/H TO FIND OUT IF HE MAY BE BLEEDING, BUT IT WAS STABLE. HE IS NOW ON CLINIMIX FOR NUTRITION AT THE MOMENT. PT'S OXYGEN REQUIRMENTS HAVE BEEN IMPROVING FIO2 DOWN TO 40%, SPO2 IS AT 92% WITH A CONSISTENT PLETH/WAVEFORM. PT HAS BEEN TACHYPNEIC ALL DAY, UPPER 20's-LOWER 30's. ABG THIS MORNING WAS SHOWING IMPROVEMENT FROM ACCIDOSIS FROM PREVIOUS ABGs. DR. ONEILL UPDATING DAUGHTER, VICKIE - WHO WILL BE PASSING WORD ALONG TO REST OF FAMILY. BED LOW AND LOCKED.
--- NOTE | 2020-04-18 18:25 | NUR ---
SHIFT SUMMARY PT REMAINS INTUBATED ON MECHANICAL VENTILATION WITH SETTINGS OF AC 22/500/5/40% FIO2. CURRENT GTTPS: PROPOFOL 25 MCG/KG/MIN, LEVOPHED 20 MCG/MIN, VASO 0.04 UNITS/MIN, AND NS 100 ML/HR. PT RECEIVED A 1.5 L BOLUS OF NS TODAY. HIS BP WAS RESPONSIVE TO THE FLUID, BUT THROUGHOUT THE DAY HE HAS REQUIRED MORE AND MORE OF LEVOPHED. PT IS OLIGURIC, HAVING A TOTAL OF 350 ML OF VIVEK URINE FOR ME. I WAS UNABLE TO PALPATE HIS PULSES, BUT THEY ARE DOPPABLE. HIS FEET WERE QUITE DUSKY, AND SLIGHTLY COOL, AND HIS HANDS WERE SLIGHTLY DUSKY BUT WARM. ADEQUATE CAP REFIL. HE HAS BEEN TACHYPNEIC ALL DAY, BUT OCCASSIONALY WILL BE IN THE 30-40s RANGE - THIS IS WHEN HE IS AWAKE AND PULLING ON RESTRAINTS. HE IS NOT SO REDIRECTABLE, HE WILL SLOW DOWN FOR A FEW SECONDS, BUT THAN RAMPS BACK UP. I HAVE BEEN KEEPING PROPOFOL AT A LOW DOSE, I HAVE BEEN USING FENTANYL PUSHES AN ADJUNCT, 50 MCG AND THIS WORKS VERY WELL - CPOT BACK TO 0. MIDLINE INCISION HAS A ELANA DRESSING, WHICH HAS SOME SEROSANGUINOUS DRAINAGE, BUT IS NOT SATURATED OR WET FROM THE OUTSIDE. IT HAS GROWN A LITTLE SINCE BEGINNING OF THE SHIFT. HIS ABDOMEN IS VERY DISTENDED AND RIGID, AND APPEARS "BUMPY". HE HAS ABSENT BTs. END OF SHIFT: PT'S SKIN FEELS WARMER. REMAINS DIAPHORETIC, THOUGH. BP APPEARS STABLE. PT SEEMS COMFORTABLE ON SEDATION, HOWEVER, RR STILL REMAINS LOW 30s. VICKIE (DAUGHTER) HAS BEEN UPDATED BY DR. ONEILL, AND HAS SEEN HIM IN PERSON. DANIELE (SON) GOT A BRIEF UPDATE FROM ME, BUT STATES HE WILL BE IN TO SEE PT TOMORROW MORNING FOR MORE INFORMATION. BED LOW AND LOCKED. CALL LIGHT WITHIN REACH.
--- NOTE | 2020-04-18 22:56 | NUR ---
ASSUMED CARE AT 1900 PT LAYING IN BED AND INTUBATED. LEVOPHED INFUSING AT 20MCG/MIN. PROPOFOL INFUSING 25MCG/KG/MIN. VASOPRESSIN INFUSING AT 0.04UNITS/MIN. NS INFUSING 100ML/HR. CLINAMIX INFUSING AT 100ML/HR. VENT SETTINGS AC 22, TV 500, PEEP 5, FIO2 40%. WAGGONER PATENT AND DRAINING TO GRAVITY. DAUGHTER WAS AT BED SIDE AND LEFT SHORTLY AFTER. SEE SHIFT ASSESSMENT FOR FULL ASSESSMENT.
[2020-04-19 04:42] LABS: BASOPHILS ABSOLUTE AUTO 0.06 K/mm3 (0.00-0.23); BASOPHILS PERCENT AUTO 1 % (0-2); Hematocrit 44.5 % (37.0-53.0); Hemoglobin 13.9 g/dL (13.5-17.5); LYMPHOCYTES ABSOLUTE AUTO 0.52 K/mm3 (0.84-5.20); LYMPHOCYTES PERCENT AUTO 5 % (21-46); MONOCYTES ABSOLUTE AUTO 0.93 K/mm3 (0.16-1.47); MONOCYTES PERCENT AUTO 8 % (4-13); Mean Corpuscular HGB 30.3 pg (26.0-34.0); Mean Corpuscular HGB Conc 31.2 g/dL (31.5-36.5); Mean Corpuscular Volume 97 fL (80-100); Mean Platelet Volume 10.4 fL (9.1-12.4); NRBC ABSOLUTE 0.05 K/mm3 (0.00-0.02); NRBC Auto 0.4 /100 WBC (0.0-0.2); Platelet Count 195 K/mm3 (150-400); RDW Standard Deviation 53.9 fL (35.1-46.3); Red Blood Cell Count 4.58 M/mm3 (4.30-5.90); White Blood Cell Count 11.43 K/mm3 (4.00-11.30)
[2020-04-19 04:43] LABS: EOSINOPHILS PERCENT AUTO 0 % (0-6); IMMATURE GRAN ABSOLUTE AUTO 0.16 K/mm3 (0.00-0.10); IMMATURE GRAN PERCENT AUTO 1 % (0-1); NEUTROPHILS ABSOLUTE AUTO 9.76 K/mm3 (1.96-9.15); NEUTROPHILS PERCENT AUTO 86 % (41-73)
[2020-04-19 05:01] LABS: Albumin, Blood 1.6 g/dL (3.4-5.0); Albumin/Globulin Ratio 0.4 (0.8-1.8); Bilirubin, Total 0.9 mg/dL (0.1-1.0); Bun/Creatinine Ratio 27.4 (12.0-20.0); Calcium, Blood 7.3 mg/dL (8.5-10.1); Creatinine, Blood 2.74 mg/dL (0.60-1.20); Globulin, Blood 3.8 g/dL (2.2-4.0); Magnesium, Blood 2.3 mg/dL (1.6-2.4); Phosphorus, Blood 4.1 mg/dL (2.5-4.9); Potassium, Blood 4.8 mmol/L (3.5-5.5); Total Protein, Blood 5.4 g/dL (6.4-8.2)
[2020-04-19 05:14] LABS: BAND PERCENT MAN 29 % (0-8); BASOPHILS PERCENT MAN 0 % (0-2); EOSINOPHILS PERCENT MAN 0 % (0-6); LYMPHOCYTES ABSOLUTE MAN 1.25 K/mm3 (0.84-5.20); LYMPHOCYTES PERCENT MAN 11 % (21-46); METAMYELOCYTE ABSOLUTE MAN 0.68 K/mm3 (0.00-0.00); METAMYELOCYTE PERCENT MAN 6 % (0-0); MONOCYTES ABSOLUTE MAN 0.34 K/mm3 (0.16-1.47); MONOCYTES PERCENT MAN 3 % (4-13); NEUTROPHILS ABSOLUTE MAN 9.14 K/mm3 (1.96-9.15); SEG NEUTROPHILS PERCENT MAN 51 % (41-73); TOTAL CELLS COUNTED 100
[2020-04-19 05:19] LABS: PCO2 Arterial 31.6 mmHg (35-45); PO2 Arterial 72.5 mmHg (80-100); pH Blood Arterial 7.36 (7.35-7.45)
--- NOTE | 2020-04-19 06:17 | NUR ---
END OF SHIFT SUMMARY PT INTUBATED AND LYING IN BED. VENT SETTINGS AT AC 22, TV 500, PEEP 5, FIO2 40%. LEVOPHED INFUSING AT 15MCG/MIN. PROPOFOL INFUSING AT 30MCG/KG/HR. VASOPRESSIN INFUSING AT 0.04UNITS/MIN. CLINAMIX INFUSING AT 100ML/HR. SBT DONE, SEE RT DOCUMENTATION. PRN FENTANYL GIVEN X5 ADJUCT WITH SEDATION. WAGGONER PATENT AND DRAINING TO GRAVITY. ABD ELANA DRESSING WITH SANGUINOUS DRAINAGE NOTED. NG CLAMPED. WILL GIVE REPORT TO AM RN WHEN AVAILABLE.
[2020-04-19 09:05] LABS: Source, Urine Catheter
[2020-04-19 09:08] LABS: Appearance, Urine Hazy (Clear); Bilirubin, Urine Neg (Neg); Blood, Urine 5+ (Neg); Color, Urine Yellow (P-Yellow); Glucose Qualitative, Urine 4+ (Neg); Ketones, Urine Neg (Neg); Leukocyte Esterase, Urine Neg (Neg); Nitrite, Urine Neg (Neg); Protein, Urine 2+ (Neg); Specific Gravity, Urine 1.015 (1.003-1.022); Urobilinogen, Urine NORM (Normal)
[2020-04-19 09:25] LABS: White Blood Cells, Urine 0-2 /hpf (0-5)
[2020-04-19 09:26] LABS: Amorphous Heavy (0-Heavy); Bacteria Rare /hpf; Squamous Epithelial Cells Rare /hpf (Few)
--- NOTE | 2020-04-19 09:43 | NUR ---
BEDSIDE REPORT TAKEN AT 0700. PT SEDATED ON PROPOFOL AT 30MCG FOR MECH VENT S/P EXP LAP. PT DOES NOT OPEN EYES TO VOICE OR FOLLOW COMMANDS. ABSENT GAG/COUGH/SWALLOW. WILL ATTEMPT SED VAC AND TITRATE PROPOFOL DOWN TOLERATED. LEVOPHED AT 13MCG, VASOPRESSIN AT 0.04UNITS. LEVOPHED TITRATED DOWN TO 10MCG FOR SBP>120. LEVOPHED NOW BACK UP TO 12MCG. TEMPORAL TEMP 97.7 THIS AM BUT SKIN HOT TO TOUCH. RECTAL TEMP PROBE PLACED; TEMP 104. DR ONEILL CALLED. [facility] CX'S SENT; URINE,SPUTUM, BLOOD CX. VANCO STARTED PER PHARMACY. RECTAL TYLENOL GIVEN. DR BARBOSA IN TO SEE PT; NO NEW ORDERS. BT'S ABSENT, ABD SOMEWHAT FIRM, NG CLAMPED. DR ONEILL NOTIFIED OF LACTIC ACID OF 3.6.
--- NOTE | 2020-04-19 11:41 | NUR ---
Pt resting in bed and is intubated. Pt's grandson Alex is at bedside. Listened as Alex discusses very little communication between family members. Alex reports Pt has 2 sons and Verena who staff has been communicating with is Pt's step daughter from Pt's ex . Anwered questions and discussed concerns. Alex reports Pt and family are part of the [place]. He reports plan to ask one of the elders to come visit Pt and provide cultural and spiritual support. Contined therapeutic listening. Spoke with Sera and discussed case. Palliative Care will remain available.
--- NOTE | 2020-04-19 12:20 | NUR ---
DR ONEILL IN TO SEE PT THIS AM AROUND 0900; FULL REPORT/UPDATE GIVEN. TYLENOL [place] GIVEN, TEMP DOWN NOW 100.9. PROPOFOL PLACED ON SB, PT WAS ABLE TO FOLLOW DIRECTIONS AFTER 5MIN, NODDED HEAD NO TO PAIN. PROPOFOL RESUMED AT 15MCG. LEVOPHED TITRATED DOWN TO 11MCG. INSULIN GTT STARTED AT 3UNITS/HR. NO OTHER CHANGES TO PRIOR ASSESSMENT.
--- NOTE | 2020-04-19 12:30 | NUR ---
PT'S RESP RATE INCREASED TO 38/40, PEAK PRESSURE ALARMING, INCREASED COUGHING. PT AWAKE; PROPOFOL INCREASED TO 20MCG.
--- NOTE | 2020-04-19 17:19 | NUR ---
Initial spiritual care note: I met with pt's grandson, Mitchell, at bedside. He told me that his father, Garcia and pt's other son Franki Elena are each active in their meth addiction and unreachable. Pt also has a dtr in [facility] that no one has heard from in years. Apparently, [place], is an ex dtr-in-law. I listened to Mitchell tell me stories about his family's dysfunction. I offered comfort and encouragement to seemingly good effect. Family in definately not episcopal. Pt is on vent and non-responsive. I will remain available.
--- NOTE | 2020-04-19 18:49 | NUR ---
TEMP HAS BEEN AROUND 99.O FROM 1500 ON. TYLENOL GIVEN ONCE TODAY THIS AM [place] W GOOD EFFECT. BP HAS BEEN LABILE T/O SHIFT. LEVOPHED TITRATED FROM 10MCG TO 15MCG AND IS NOW 10MCG. INSULIN GTT IS AT 5UNITS/HR W BS AROUND 170. PROPOFOL AT 30MCG; PT AGITATED W INCREASED RESP WHEN TITRATED LOWER THAN THIS. FENT GIVEN ONE TIME THIS SHIFT. REPORT TO BE GIVEN TO ONCOMING RN
--- NOTE | 2020-04-19 20:43 | NUR ---
HEPARIN CLEARED BY DR. BARBOSA TO START HEPARIN SQ AT THIS TIME.
--- NOTE | 2020-04-19 22:40 | NUR ---
ASSUMED CARE AT 1900 PT INTUBATED AND LYING IN BED. VENT SETTINGS AT AC 22, TV 500, PEEP 5, FIO2 40%. LEVOPHED INFUSING AT 10MCG/MIN. PROPOFOL INFUSING AT 30MCG/KG/MIN. VASOPRESSION 0.04UNITS/MIN. INSULIN INFUSING AT 5UNITS/HR. CLINIMIX INFUSING AT 100ML/HR. WAGGONER PATENT AND DRAINING TO GRAVITY. RECTAL THERMOMETER IN PLACE. SEE SHIFT ASSESSMENT FOR FULL ASSESSMENT.
[2020-04-20 04:25] LABS: Hematocrit 37.3 % (37.0-53.0); Hemoglobin 11.9 g/dL (13.5-17.5); Mean Corpuscular HGB 30.3 pg (26.0-34.0); Mean Corpuscular HGB Conc 31.9 g/dL (31.5-36.5); Mean Corpuscular Volume 95 fL (80-100); Mean Platelet Volume 10.7 fL (9.1-12.4); NRBC ABSOLUTE 0.02 K/mm3 (0.00-0.02); NRBC Auto 0.3 /100 WBC (0.0-0.2); Platelet Count 157 K/mm3 (150-400); RDW Coefficient Variation 14.8 % (11.7-14.2); RDW Standard Deviation 51.7 fL (35.1-46.3); Red Blood Cell Count 3.93 M/mm3 (4.30-5.90); White Blood Cell Count 7.81 K/mm3 (4.00-11.30)
[2020-04-20 04:39] LABS: International Normalized Ratio 1.19; Prothrombin Time Results 12.6 Sec (9.7-11.5)
[2020-04-20 04:46] LABS: Alanine Aminotransfer (ALT/SGP 89 U/L (12-78); Albumin, Blood 1.3 g/dL (3.4-5.0); Albumin/Globulin Ratio 0.3 (0.8-1.8); Alk Phos 78 U/L (50-136); Anion Gap 8 mmol/L (6-16); Aspartate Aminotrans (AST/SGOT 333 U/L (12-37); Bilirubin, Total 0.6 mg/dL (0.1-1.0); Blood Urea Nitrogen 75 mg/dL (8-24); Bun/Creatinine Ratio 33.3 (12.0-20.0); CO2, Blood 22 mmol/L (21-32); Calcium, Blood 7.6 mg/dL (8.5-10.1); Chloride, Blood 112 mmol/L (98-108); Creatinine, Blood 2.25 mg/dL (0.60-1.20); Globulin, Blood 3.9 g/dL (2.2-4.0); Glomerular Filtration Rate 30 (60-); Glucose, Blood 148 mg/dL (70-99); Magnesium, Blood 2.5 mg/dL (1.6-2.4); Phosphorus, Blood 4.2 mg/dL (2.5-4.9); Potassium, Blood 3.8 mmol/L (3.5-5.5); Sodium, Blood 142 mmol/L (136-145); Total Protein, Blood 5.2 g/dL (6.4-8.2); Triglycerides 197 mg/dL (30-160); Vancomycin, Random 10.7 ug/mL
[2020-04-20 05:26] LABS: BAND PERCENT MAN 37 % (0-8); BASOPHILS PERCENT MAN 0 % (0-2); EOSINOPHILS PERCENT MAN 0 % (0-6); LYMPHOCYTES ABSOLUTE MAN 0.15 K/mm3 (0.84-5.20); LYMPHOCYTES PERCENT MAN 2 % (21-46); METAMYELOCYTE ABSOLUTE MAN 0.07 K/mm3 (0.00-0.00); METAMYELOCYTE PERCENT MAN 1 % (0-0); MONOCYTES ABSOLUTE MAN 0.31 K/mm3 (0.16-1.47); MONOCYTES PERCENT MAN 4 % (4-13); NEUTROPHILS ABSOLUTE MAN 7.26 K/mm3 (1.96-9.15); SEG NEUTROPHILS PERCENT MAN 56 % (41-73); TOTAL CELLS COUNTED 100
[2020-04-20 05:55] LABS: PCO2 Arterial 32.9 mmHg (35-45); PO2 Arterial 69.2 mmHg (80-100); pH Blood Arterial 7.41 (7.35-7.45)
--- NOTE | 2020-04-20 06:26 | NUR ---
END OF SHIFT SUMMARY PT INTUBATED. VENT SETTINGS AC 22, TV 500, PEEP 5, FIO2 40%. INSULIN INFUSING AT 4U/HR. LEVOPHED INFUSING AT 8MCG/MIN. VASOPRESSIN INFUSING AT 0.04UNITS/MIN. PROPOFOL INFUSING AT 30MCG/KG/MIN. CLINIMIX INFUSING AT 100ML/HR. WAGGONER PATENT AND DRAINING TO GRAVITY. SEE RT NOTES ABOUT SBT. WILL REPORT TO AM RN WHEN AVAILABLE.
--- NOTE | 2020-04-20 09:28 | NUR ---
BEDSIDE REPORT TAKEN AT 0700. PT SEDATED ON PROPOFOL AT 30MCG FOR MECH VENT. LEVOPHED AT 8MCG, VASOPRESSIN GTT AT 0.04UNITS, INSULIN GTT AT 4UNITS; BS BETWEEN 140-170. PT SOMEWHAT AGITATED; RESP HIGH 30'S LOW 40'S, PEAK PRESSURE ALARMING, RESTLESS. PT ABLE TO SQUEEZED TO COMMAND BILAT, OPENED EYES TO COMMAND, AND NODDED NO TO PAIN. PROPOFOL INCREASED TO 40MCG WITHOUT IMPROVEMENT. FENT 50MCG GIVEN W IMPROVEMENT. TEMP 100.0; SKIN WARM TO THE TOUCH. RECTAL TUBE INTACT W SCANT AMT OF RUST COLORED LIQUID. OCCASSIONAL BT'S APPRECIATED. SBP >120, LEVOPHED DECREASED TO 5MCG. LEFT LUNG COARSE, AND WHEN TURNED TO LEFT SIDE SATURATION DECREASED TO 86-87% ON 40% FIO2. FIO2 INCREASED TO 50%; RT NOTIFIED.
--- NOTE | 2020-04-20 11:14 | NUR ---
DR BARBOSA IN TO SEE PT; NOTIFIED OF RUST COLORED LIQUID STOOL; POSSIBLE BLOOD. PER DR BARBOSA: OKAY TO START TRICKLE FEEDS ON PT. BP STABLE ON LEVOPHED AT 5MCG. PROPOFOL REMAINS AT 40MCGS. BS STABLE ON 3UNITS. O2 IMPROVED ON RIGHT SIDE
--- NOTE | 2020-04-20 11:39 | NUR ---
DR. ONEILL IN TO SEE PT. FULL UPDATE GIVEN, VASOPRESSIN TO STBY. WILL REPLACE RECTAL TEMP PROBE WITH WAGGONER TEMP PROBE PER DR. ONEILL.
--- NOTE | 2020-04-20 14:25 | NUR ---
VASOPRESSIN REMAINS OFF; LEVOPHED HAS BEEN TITRATED UP TO 12MCG TO KEEP MAP>65. NG DC'D AND REPLACED WITH OG PER PROTOCOL (DR ONEILL NOTIFIED). AIR AUSCULTATED OVER EPIGASTRIM; BILE ASPIRATED. AWAITING TRICKLE TF ORDERS. WHILE REMOVING RECTAL TEMP PROBE (REPLACED BY WAGGONER TEMP PROBE) WORSENING DISCOLORATION/POSSIBLE PRESSURE ULCERS NOTED. THIS DISCOLORATION WAS EVALUATED YESTERDAY AND THOUGHT TO BE NATURAL PIGMENTATION VARIATION, BUT TODAY IT IS CLEARLY DARKER AND DOES NOT DANISH. PT HAS BEEN TURNED Q 2HRS AND HAS NOT BEEN POSITIONED ON BACK. PICTURE OF BUTTOCKS/COCCYX TAKEN. WILL CONT TO TURN QHRS AND KEEP OFF BACK. INSULIN GTT INCREASED [id number].
--- NOTE | 2020-04-20 15:23 | NUR ---
VITAL HIGH PROTEIN TF STARTED AT 10CC/HR PER ORDERS. CLINIMIX DECREASED TO 80CC/HR PER ORDERS.
--- NOTE | 2020-04-20 18:30 | NUR ---
INSULIN GTT DC'D; PT TRANSITIONED TO HIGH SS/LANTUS. LEVOPHED AT 12MCG. VASOPRESSIN REMAINS OFF. PROPOFOL HAS REMAINED AT 40MCG FOR SHIFT. CLINIMIX WAS DECREASED TO 70CC/HR. FIO2 WAS DECRESAED FROM 50% BACK TO 40% AROUND 1600, SATS REMAIN >90%. FENTANYL GIVEN X1 THIS SHIFT.
--- NOTE | 2020-04-21 00:43 | NUR ---
ASSUMED CARE AT 1900 PT LAYING IN BED AND INTUBATED. VENT SETTINGS AC 22, TV 500, PEEP 5, FIO2 40%. LEVOPHED INFUSING AT 12MCG/MIN. PROPOFOL INFUSING AT 40MCG/KG/MIN. CLINIMIX INFUSING AT 70ML/HR. VHP INFUSING 10ML/HR WITH 30ML FLUSHES Q4HR. WAGGONER PATENT AND DRAINING TO GRAVITY. RECTAL TUBE PATENT. SEE SHIFT ASSESSMENT FOR FULL ASSESSMENT.
[2020-04-21 04:14] LABS: Alanine Aminotransfer (ALT/SGP 94 U/L (12-78); Albumin, Blood 1.2 g/dL (3.4-5.0); Albumin/Globulin Ratio 0.3 (0.8-1.8); Alk Phos 223 U/L (50-136); Anion Gap 9 mmol/L (6-16); Aspartate Aminotrans (AST/SGOT 264 U/L (12-37); Bilirubin, Total 0.6 mg/dL (0.1-1.0); Blood Urea Nitrogen 78 mg/dL (8-24); Bun/Creatinine Ratio 39.4 (12.0-20.0); CO2, Blood 18 mmol/L (21-32); Calcium, Blood 7.2 mg/dL (8.5-10.1); Chloride, Blood 113 mmol/L (98-108); Creatinine, Blood 1.98 mg/dL (0.60-1.20); Globulin, Blood 3.8 g/dL (2.2-4.0); Glomerular Filtration Rate 35 (60-); Glucose, Blood 251 mg/dL (70-99); Potassium, Blood 4.2 mmol/L (3.5-5.5); Sodium, Blood 140 mmol/L (136-145); Vancomycin, Random 15.4 ug/mL
[2020-04-21 04:19] LABS: Hematocrit 36.8 % (37.0-53.0); Hemoglobin 11.8 g/dL (13.5-17.5); Mean Corpuscular HGB 30.3 pg (26.0-34.0); Mean Corpuscular HGB Conc 32.1 g/dL (31.5-36.5); Mean Corpuscular Volume 94 fL (80-100); Mean Platelet Volume 11.2 fL (9.1-12.4); NRBC ABSOLUTE 0.02 K/mm3 (0.00-0.02); NRBC Auto 0.2 /100 WBC (0.0-0.2); Platelet Count 130 K/mm3 (150-400); RDW Coefficient Variation 14.8 % (11.7-14.2); RDW Standard Deviation 51.7 fL (35.1-46.3); White Blood Cell Count 10.71 K/mm3 (4.00-11.30)
[2020-04-21 04:56] LABS: BAND PERCENT MAN 9 % (0-8); BASOPHILS PERCENT MAN 0 % (0-2); EOSINOPHILS PERCENT MAN 0 % (0-6); LYMPHOCYTES ABSOLUTE MAN 0.42 K/mm3 (0.84-5.20); LYMPHOCYTES PERCENT MAN 4 % (21-46); METAMYELOCYTE PERCENT MAN 1 % (0-0); MONOCYTES ABSOLUTE MAN 0.32 K/mm3 (0.16-1.47); MONOCYTES PERCENT MAN 3 % (4-13); NEUTROPHILS ABSOLUTE MAN 9.85 K/mm3 (1.96-9.15); SEG NEUTROPHILS PERCENT MAN 83 % (41-73); TOTAL CELLS COUNTED 100
[2020-04-21 05:18] LABS: PCO2 Arterial 30.6 mmHg (35-45); PO2 Arterial 60.4 mmHg (80-100); pH Blood Arterial 7.41 (7.35-7.45)
--- NOTE | 2020-04-21 06:10 | NUR ---
END OF SHIFT SUMMARY PT INTUBATED. VENT SETTINGS AC 22, TV 500, PEEP 5, FIO2 40%. SEE RT NOTES ABOUT SBT. DURING SBT, PT ABLE TO FOLLOW COMMANDS. LEVOPHED INFUSING AT 9MCG/MIN. PROPOFOL INFUSING AT 40MCG/KG/MIN. CLINIMIX INFUSING AT 70ML/HR. VHP AT GOAL OF 10ML/HR WITH 30ML FLUSHES. WAGGONER PATENT AND DRAINING TO GRAVITY. RECTAL TUBE PATENT. WILL REPORT TO AM RN WHEN AVAILABLE.
--- NOTE | 2020-04-21 09:04 | NUR ---
ASSUMED CARE OF PT AT 0700. REPORT FROM HAVEN/VANESSA RN. PT INTUBATED AND SEDATED. VENT SETTINGS AC 22/500/5/30. PROPOFOL INFUSING AT 40 MCG/KG/MIN. PT GRIMACES c CARE. GAG AND COUGH REFLEX PRESENT. LUNGS DIMINISHED IN BASES. LEVOPHED INFUSING AT 9 MCG/MIN, WILL TITRATE FOR MAP >65. SR ON MONITOR, RATE 90'S. VHP INFUSING AT 10 ML/HR c 30 ML FLUSHES q4. 20 ML OF RESIDUALS. HYPOACTIVE BT. ELANA DRESSING TO MIDLINE ABD. DRAINAGE MARKED ON DRESSING, PER NOC RN, NO DRAINING IN LAST 24 HOURS. ABD ROUND, FIRM, NON TENDER. RECTAL TUBE IN PLACE, SMALL AMOUNT OF LIQUID BROWN STOOL HIGH IN TUBE. NONE IN DRAINAGE BAG. TEMP PROBE WAGGONER IN PLACE, DRAINING CLOUDY YELLOW URINE TO GRAVITY. GENERALIZED EDEMA TO EXTREMITIES. CL TO [facility], DRESSING C/D/I. CLINDIMIX INFUSING AT 70 ML/HR. POWERGLIDE TO RUE, FLUSHES, DOES NOT DRAW BLOOD. WILL CONTINUE TO MONITOR.
--- NOTE | 2020-04-21 18:02 | NUR ---
SHIFT SUMMARY PT REMAINS INTUBATED AND SEDATED. VENT SETTINGS AC 22/500/5/40%. PROPOFOL INFUSING AT 15 MCG/KG/MIN AND PRECEDEX AT 0.5 MCG/KG/HR. PT GRIMACES c CARE. DURING SEDATION VACATION, PT ABLE TO FOLLOW SIMPLE COMMANDS. TACHYPNIC DURING VACATION. RATE 35-45. PLAN TO TITRATE OFF PROPOFOL AND SEDATE c PRECEDEX AND FENTANYL FOR PAIN. LUNGS DIMINISHED IN BASES. THICK SECRETIONS THROUGH ETT. TUBE FEEDS CONTINUE AT 10 ML/HR c 30 ML FLUSHES q4HR. MINIMAL RESIDUALS. DR JANE CHANGED ELANA DRESSING THIS SHIFT. ABD SOFT, NON TENDER. HYPOACTIVE BT. RECTAL TUBE c SMALL AMOUNT OF LOOSE BROWN STOOL CLOSE TO RECTUM. DIURESED TODAY, 2300 ML CLEAR YELLOW URINE OUT. CLINDIMIX D/C'D AND CPN STARTED THIS SHIFT. LEVOPHED TITRATED TO 6 MCG/MIN THIS SHIFT. WILL CONTINUE TO MONITOR UNTIL REPORT TO ONCOMING NURSE.
--- NOTE | 2020-04-21 20:40 | NUR ---
INITAL SHIFT ASSESSMENT BED SIDE REPORT RECIEVED FROM OFF GOING RN. PT IS INTUBATED AND SEDATED AT THIS TIME. PROPOFOL GTT IS AT 15MCG. PRECEDEX GTT AT 0.5MCG. WILL CON'T TO TITRATE NEEDED. LEVOPHED GTT AT 6MCG. SEE ICU FLOWSHEET FOR TITRATIONS AND EMAR FOR ALL MEDS ADMINISTERED. TPN RUNNING ORDERED. PT HAS A CENTRAL LINE TO LEFT IJ CDI DRESSING. POWERGLIDE TO RIGHT UPPER ARM CDI DRESSING. VITALS ARE STABLE AT THIS TIME. PT IS FAIRLY AGGITATED WITH BED CPT. PT HAS BEEN GIVEN FENTANYL IV PRN TO HELP WITH COMFORT. OG TUBE IN PLACE WITH ET TUBE AND HIGH PROTEIN RUNNING ORDERED. MINIMAL RESIDUALS AT THIS CHECK. ABD IS VERY ROUND, BUT TENDER TO PALPATATION. PICCO DRESSING MIDLINE IS CDI AND SUCTION IS WORKING. WAGGONER CATH IN PLACE DRAINING CLEAR YELLOW URINE. RECTAL TUBE IN PLACE DRAINING MINIMAL STOOL. PT WAS REPOSITIONED AND THE RECTAL TUBE WAS REPOSITIONED BY THIS RN. PAS STOCKINGS IN PLACE. PT'S SKIN OVERALL IS CDI POOR QUALITY OF SKIN. JARAD SOFT WRIST RESTRAINTS IN PLACE WITH GOOD SKIN CIRCULATION. PT DOES PULL AGAINST RESTRAINTS AT TIMES AND DRAWS AND KICKS LEGS UP. WILL CON'T TO MONITOR AND KEEP PT SAFE T/O REMIANDER OF SHIFT.
[2020-04-22 03:59] LABS: BASOPHILS ABSOLUTE AUTO 0.08 K/mm3 (0.00-0.23); BASOPHILS PERCENT AUTO 1 % (0-2); EOSINOPHILS ABSOLUTE AUTO 0.01 K/mm3 (0.00-0.68); EOSINOPHILS PERCENT AUTO 0 % (0-6); Hematocrit 35.7 % (37.0-53.0); Hemoglobin 11.5 g/dL (13.5-17.5); IMMATURE GRAN ABSOLUTE AUTO 0.36 K/mm3 (0.00-0.10); IMMATURE GRAN PERCENT AUTO 4 % (0-1); LYMPHOCYTES ABSOLUTE AUTO 0.32 K/mm3 (0.84-5.20); LYMPHOCYTES PERCENT AUTO 3 % (21-46); MONOCYTES ABSOLUTE AUTO 0.27 K/mm3 (0.16-1.47); MONOCYTES PERCENT AUTO 3 % (4-13); Mean Corpuscular HGB 30.3 pg (26.0-34.0); Mean Corpuscular HGB Conc 32.2 g/dL (31.5-36.5); Mean Corpuscular Volume 94 fL (80-100); Mean Platelet Volume 11.4 fL (9.1-12.4); NEUTROPHILS ABSOLUTE AUTO 9.04 K/mm3 (1.96-9.15); NEUTROPHILS PERCENT AUTO 90 % (41-73); NRBC ABSOLUTE 0.02 K/mm3 (0.00-0.02); NRBC Auto 0.2 /100 WBC (0.0-0.2); Platelet Count 108 K/mm3 (150-400); RDW Coefficient Variation 14.8 % (11.7-14.2); RDW Standard Deviation 51.1 fL (35.1-46.3); White Blood Cell Count 10.08 K/mm3 (4.00-11.30)
[2020-04-22 04:16] LABS: Bun/Creatinine Ratio 40.4 (12.0-20.0); Calcium, Blood 7.5 mg/dL (8.5-10.1); Creatinine, Blood 2.03 mg/dL (0.60-1.20); Potassium, Blood 3.9 mmol/L (3.5-5.5)
--- NOTE | 2020-04-22 05:43 | NUR ---
SHIFT SUMMARY PT HAS BEEN STABLE T/O SHIFT. RT DID A WEAN WITH PT AND HE DID VERY WELL. PRECEDEX GTT TURNED ON FOR PT'S COMFORT AT THIS TIME BC HE CON'T TO BE ON SPONTANEOUS. PT IS ALERT AND FOLLOWING COMMANDS. HE SHAKES HIS HEAD YES AND NO TO QUESTIONS. WILL SQUEEZE THIS RN'S HANDS. PT SHAKES HIS HEAD NO TO HAVING ANY PAIN. JARAD WRIST RESTRAINTS IN PLACE. PROPOFOL GTT ON STANDBY AT THIS TIME. TPN CON'T TO RUN. LEVOPHED GTT AT 2MCG WILL CON'T TO TITRATE. PT HAS HAD VERY MINIMAL OUTPUT IN THE RECTAL TUBE. GOOD URINE OUTPUT FROM WAGGONER CATH. OG TUBE CON'T TO HAVE LESS THAN 30CC OF RESIDUALS. WILL CON'T TO MONITOR AND KEEP PT SAFE T/O REMAINDER OF SHIFT TILL REPORT TO ONCOMING RN.
--- NOTE | 2020-04-22 08:00 | NUR ---
ASSUMED CARE OF PT AT 0700. REPORT FROM MUKESH DAVIDSON. PT INTUBATED AND SEDATED. VENT SETTINGS SPONT, 7/5 30%. PRECEDEX INFUSING AT 0.6 MCG/KG/HR. PROPOFOL ON STANDBY. PT NODS YES/NO TO QUESTIONS. FOLLOWS COMMANDS. COUGH AND GAG REFLEX PRESENT. LUNGS DIMINISHED IN BASES. VHP INFUSING AT 10 ML/HR c 30 ML FLUSH q4 VIA OGT. BT HYPOACTIVE, ABD MILDLY DISTENDED, SOFT. ELANA DRESSING C/D/I. RECTAL TUBE IN PLACE c SMALL AMOUNT OF LIQUID BROWN STOOL IN TUBE, UNCHANGED FROM YESTERDAY. WAGGONER IN PLACE, DRAINING CLEAR YELLOW URINE TO GRAVITY. LEVOPHED GTT AT 2 MCG/MIN, WILL TITRATE FOR MAP >65. WILL CONTINUE TO MONITOR.
--- NOTE | 2020-04-22 10:13 | NUR ---
DR BECCA ERAZO, PT FOLLOWING COMMANDS, CONTINUES ON SPONT MODE ON VENT, PROPOFOL ON STANDBY. PRECEDEX INFUSING. COUGH, GAG AND SWALLOW REFLEX PRESENT. TUBE FEEDS PLACED ON STANDBY. PT EXTUBATED AT 0959. SPEAKING IN ONE WORD SENTANCES. ABLE TO SUCTION SECRETIONS INDEPENDENTLY. LUNGS COARSE. WEAK COUGH. ENCOURAGED COUGH AND DEEP BREATHING. PLACED ON 3L O2 VIA NC. VSS. WILL CONTINUE TO MONITOR.
--- NOTE | 2020-04-22 17:10 | NUR ---
SHIFT SUMMARY PT EXTUBATED THIS SHIFT. TOLERATING WELL. O2 AT 4L VIA NC. O2 SATS >88%. PT c PRODUCTIVE COUGH. ABLE TO SELF SUCTION c RUBENS. LUNGS COARSE, DIMINISHED IN BASES. LEVOPHED CONTINUES AT 2-3 MCG/MIN, NSR, RATE 90'S. TPN CONTINUED. ABD ROUND, SOFT, NON TENDER. BT X4, HYPOACTIVE. ELANA DRESSING C/D/I, SMALL AMOUNT OF DRAINAGE MARKED. WAGGONER PATENT, DRAINING TO GRAVITY. PT PASSED BEDSIDE SWALLOW EVAL. OK FOR ICE CHIPS AND SMALL SIPS OF WATER PER DR JANE. PT WORKED c PHYSICAL THERAPY TODAY. UP TO CHAIR FOR HALF OF SHIFT. AFTER EXTUBATION, SMALL ULCER NOTED TO RIGHT CHEEK. SEE PHOTOS. WILL CONTINUE TO MONITOR UNTIL REPORT TO ONCOMING NURSE.
--- NOTE | 2020-04-22 19:49 | NUR ---
SHIFT ASSESSMENT PT IS ALERT AND SITTING UP IN A CHAIR AT THIS TIME. PT REQUESTED TO GO BACK TO BED. DAY SHIFT RN HELPED THIS RN WITH LIFT TO MOVE PT BACK TO BED. PT TOLERATED THIS WELL. HE IS VERY TALKATIVE AND SPEECH IS LOW AND MUMMBLED, BUT ABLE TO COMMUNICATE ALL HIS NEEDS. HIS VITALS ARE STABLE AT THIS TIME. HE IS CONCERNED THAT HE HAS HAD A STROKE BC IT IS HARD FOR HIM TO MOVE HIS LEFT ARM. HE IS ALSO CONCERNED THAT HE WILL NOT BE ABLE TO WALK AGAIN BC HE FEELS VERY DECONDITIONED. OVERALL PT IS PLESANT HE JUST SEEMS TO BE SLIGHTLY ANXIOUS WITH HIS CARE AND CONDITION. PT DOES HAVE PAIN TO HIS ABD AND IS RECIEVING FENTANYL IV TO HELP WITH PAIN CONTROL WELL REPOSISTIONING HIM. PT HAS A CENTRAL LINE TO LEFT IJ IN PLACE. HE HAS TPN RUNNING WELL LEVOPHED GTT AT 3MCG. WILL CON'T TO TITRATE NEEDED FOR BP. WAGGONER CATH IN PLACE DRAINING CLEAR YELLOW URINE. RECTAL TUBE IN PLACE WELL WITH VERY MINIMAL DRAINAGE. PAS STOCKING RE-PLACED AT THIS TIME. RE-EDUCATED PT ABOUT USE OF CALL LIGHT AND OR SUCTION. PT HAS THEM BOTH IN HIS LAP. WILL CON'T TO MONITOR AND KEEP PT SAFE T/O REMAINDER OF SHIFT.
[2020-04-23 03:52] LABS: BASOPHILS ABSOLUTE AUTO 0.05 K/mm3 (0.00-0.23); BASOPHILS PERCENT AUTO 0 % (0-2); EOSINOPHILS PERCENT AUTO 0 % (0-6); Hematocrit 39.7 % (37.0-53.0); Hemoglobin 12.6 g/dL (13.5-17.5); IMMATURE GRAN ABSOLUTE AUTO 0.49 K/mm3 (0.00-0.10); IMMATURE GRAN PERCENT AUTO 4 % (0-1); LYMPHOCYTES ABSOLUTE AUTO 0.43 K/mm3 (0.84-5.20); LYMPHOCYTES PERCENT AUTO 4 % (21-46); MONOCYTES ABSOLUTE AUTO 0.35 K/mm3 (0.16-1.47); MONOCYTES PERCENT AUTO 3 % (4-13); Mean Corpuscular HGB 30.2 pg (26.0-34.0); Mean Corpuscular HGB Conc 31.7 g/dL (31.5-36.5); Mean Corpuscular Volume 95 fL (80-100); Mean Platelet Volume 11.7 fL (9.1-12.4); NEUTROPHILS ABSOLUTE AUTO 10.42 K/mm3 (1.96-9.15); NEUTROPHILS PERCENT AUTO 89 % (41-73); Platelet Count 135 K/mm3 (150-400); RDW Coefficient Variation 14.8 % (11.7-14.2); RDW Standard Deviation 51.9 fL (35.1-46.3); Red Blood Cell Count 4.17 M/mm3 (4.30-5.90); White Blood Cell Count 11.74 K/mm3 (4.00-11.30)
[2020-04-23 04:12] LABS: Anion Gap 8 mmol/L (6-16); Blood Urea Nitrogen 94 mg/dL (8-24); CO2, Blood 23 mmol/L (21-32); Calcium, Blood 7.4 mg/dL (8.5-10.1); Chloride, Blood 113 mmol/L (98-108); Glomerular Filtration Rate 35 (60-); Glucose, Blood 302 mg/dL (70-99); Potassium, Blood 3.8 mmol/L (3.5-5.5); Sodium, Blood 144 mmol/L (136-145); Triglycerides 289 mg/dL (30-160)
--- NOTE | 2020-04-23 05:46 | NUR ---
SHIFT SUMMARY PT CON'T TO BE STABLE. HE HAS DONE VERY WELL T/O SHIFT COMMUNICATING NEEDS. HE HAS STARTED TO USE CALL LIGHT. PT'S PAIN HAS BEEN TREATED WITH REPOSISTIONING WELL IV PAIN MEDS. FENTANYL AND DILAUDID HAVE BOTH BEEN GIVEN. WILL PASS ON TO DAY SHIFT RN POSSIBLY GETTING A CUSTOMER MANAGEMENT SPECIALIST FOR MORE CONSISTANT/BETTER PAIN CONTROL. PT HAS BEEN GIVEN SOME ICE CHIPS WELL SEVERAL SOAKED SWABS. PT IS ABLE TO HOLD THE SWABS HIMSELF. PT CON'T TO HAVE OXYGEN IN PLACE. HE DID REST FOR ABOUT TWO HOURS TONIGHT AND WAS DIPPING INTO THE 84% ON SATS THUS OXYGEN INCREASED TO 5 LITERS. FLEXISEAL REMOVED R/T DECREASED OUTPUT AROUND 0300. PT STATES THAT HE FEELS LIKE HE NEEDS TO HAVE A BM. NO PRODUCTION OF YET. PT CON'T TO HAVE DIPS IN BP AND THUS LEVOPHED GTT CON'T TO BE TITRATED BETWEEN 3 AND 2MCG. PT IS ON 2MCG AT THIS TIME. TPN CON'T TO RUN ORDERED WELL. CENTRAL LINE CON'T TO BE PATENT. OVERALL PT IS STABLE WITH NO ACUTE CHANGES. WILL CON'T TO MONITOR AND KEEP PT SAFE TILL REPORT TO ONCOMING RN.
--- NOTE | 2020-04-23 08:00 | NUR ---
AM ASSESSMENT: PT IS ALERT AND ORIENTED TO PERSON/SELF/FAMILY/KNEW HOSPITAL WAS IN [place], BUT COULD NOT RECALL NAME. PT PLEASANT AND COOPERATIVE WITH CARE. PT ANSWERS QUESTIONS APPROPRIATELY, BUT SLOWLY. MENTASTA BUT DOES NOT WEAR HEARING AIDS. POOR SHORT TERM MEMORY. LUNGS ARE CLEAR BUT DIMINISHED IN THE LLL/RML/RLL. SP02 MID 90% RANGE ON 5L 02 VIA N/C. WILL ATTEMPT TO WEAN THIS TODAY. HR REGULAR, SR- 70-80'S RANGE. PT REMAINS ON LEVOPHED AT 1MCG/MIN TO MAINTAIN MAPS >65. ABD LARGE/DISTENDED/MILDLY TENDER T/O UPON PALPATION. BT'S DISTANT BUT ACTIVE X 4 QUADS. PT REMAINS NPO EXCEPT SM AMT OF ICE CHIPS. PT CONSTANTLY ASKING FOR WATER/ICE CHIPS/SWABS DIPPED IN WATER. NO BM OBSERVED YET THIS SHIFT. PT PASSING FLATUS. PT DRAINING CLEAR, YELLOW URINE PER WAGGONER TO GRAVITY. -DNR STATUS -CBG'S Q6H, WITH S/S INSULIN COVERAGE
--- NOTE | 2020-04-23 09:30 | NUR ---
DR JANE IN TO ASSESS PT. DISCUSSED PT'S CASE. ABD IS SOFTER PER DR JANE. PT ALLOTTED ONE POPSICLE TODAY AND WILL ASSESS HOW PT TOLERATES. DISCUSSED CONTINUED UNCONTROLLED PAIN, DISCUSSED SEWING SUPERVISOR. SEE NEW ORDERS.
--- NOTE | 2020-04-23 11:56 | NUR ---
DR SUAREZ/BECCA IN TO ASSESS PT. DISCUSS/UPDATED ON PT'S STATUS. DISCUSSED NAIL SPECIALIST AND INCREASING LANTUS DOSE. SEE NEW ORDERS.
--- NOTE | 2020-04-23 13:46 | NUR ---
PT UPDATE: PT ASLEEP IN CHAIR AT THIS TIME. NO SIGNS/SYMPTOMS OF PAIN AT THIS TIME.
--- NOTE | 2020-04-23 19:13 | NUR ---
REPORTED OFF TO LETY MAYORGA WHOM IS NOW ASSUMING CARE.
--- NOTE | 2020-04-23 20:11 | NUR ---
SHIFT ASSESSMENT PT IS ALERT IN BED SITTING UP. HE STATES HE BUTTOCKS HURTS AND THUS THIS RN AND ANOTHER RN REPOSITIONED HIM ONTO HIS RIGHT SIDE. HE ALSO WAS GIVEN PAIN MEDS IV REQUESTED FOR ABD PAIN. HE IS NOW RESTING WELL WITH EYES CLOSED RRR. HIS VITALS ARE STABLE. HE WILL HAVE SLIGHT DIPS IN BP RELATED TO PAIN MEDICATION ADMINISTRATION. 5L N/C IN PLACE. WILL TITRATE NEEDED. CENTRAL LINE TO LEFT IJ PATENT. DRESSING HAS BEEN RE-ENFOURCED AT THIS TIME AND WILL BE CHANGED AGAIN THIS SHIFT. DRESSING DOES NOT SEEM TO STICK TO HIS SKIN WELL. PT HAS A POWERGLIDE TO RIGHT UPPER ARM FLUSHED, CDI, WITH NO S/S OF INFECTION SL. ABD PICCO DRESSING CDI. SOME NOTED DRAINAGE IN PLACE THAT HAS NOT CHANGED IN AMOUNT FOR A DAY. WAGGONER CATH IN PLACE DRAINING CLEAR YELLOW URINE. CATH CARE PERFORMED AT THIS TIME WELL. WHEN TURNED PT HAD CREAM APPLIED TO BUTTOCKS. THERE CON'T TO BE A SMALL SORE TO COCCXY, WILL CON'T TO TURN PT EVERY TWO HOURS OR MORE IF NEEDED. PT HAS PAS STOCKINGS IN PLACE. CALL LIGHT IN REACH WELL ORAL SUCTION. WILL CON'T TO MONITOR AND KEEP PT SAFE T/O REMAINDER OF SHIFT.
--- NOTE | 2020-04-24 00:24 | NUR ---
SHIFT UPDATE PT HAS BEEN COOPERTIVE WITH HIS CARE. HE IS ON HIS CALL LIGHT CONSTANTLY. WANTING ICE CHIPS, PAIN MEDS, WATER OR TO BE REPOSITIONED. VERY CROW. HE THEN APPOLIGIZES FOR CALLING. OVERALL HE IS ORIENTED JUST NOT TO THE AMOUNT OF TIME THAT HAS GONE BY. CENTRAL LINE DRESSING CHANGED AGAIN THIS SHIFT. WILL CON'T TO MONITOR AND KEEP PT SAFE T/O REMAINDER OF SHIFT.
[2020-04-24 03:25] LABS: Hematocrit 37.2 % (37.0-53.0); Hemoglobin 11.7 g/dL (13.5-17.5); Mean Corpuscular HGB 30.5 pg (26.0-34.0); Mean Corpuscular HGB Conc 31.5 g/dL (31.5-36.5); Mean Corpuscular Volume 97 fL (80-100); Platelet Count 159 K/mm3 (150-400); RDW Coefficient Variation 14.8 % (11.7-14.2); RDW Standard Deviation 53.1 fL (35.1-46.3); Red Blood Cell Count 3.84 M/mm3 (4.30-5.90); White Blood Cell Count 8.42 K/mm3 (4.00-11.30)
[2020-04-24 03:46] LABS: Albumin, Blood 1.3 g/dL (3.4-5.0); Albumin/Globulin Ratio 0.3 (0.8-1.8); Bilirubin, Total 0.5 mg/dL (0.1-1.0); Bun/Creatinine Ratio 55.8 (12.0-20.0); Calcium, Blood 7.6 mg/dL (8.5-10.1); Creatinine, Blood 1.97 mg/dL (0.60-1.20); Globulin, Blood 3.9 g/dL (2.2-4.0); Potassium, Blood 3.8 mmol/L (3.5-5.5); Total Protein, Blood 5.2 g/dL (6.4-8.2)
[2020-04-24 03:57] LABS: BAND PERCENT MAN 6 % (0-8); BASOPHILS PERCENT MAN 0 % (0-2); EOSINOPHILS PERCENT MAN 0 % (0-6); LYMPHOCYTES ABSOLUTE MAN 1.09 K/mm3 (0.84-5.20); LYMPHOCYTES PERCENT MAN 13 % (21-46); MONOCYTES ABSOLUTE MAN 0.58 K/mm3 (0.16-1.47); MONOCYTES PERCENT MAN 7 % (4-13); MYELOCYTE ABSOLUTE MAN 0.08 K/mm3 (0.00-0.00); MYELOCYTE PERCENT MAN 1 % (0-0); NEUTROPHILS ABSOLUTE MAN 6.65 K/mm3 (1.96-9.15); SEG NEUTROPHILS PERCENT MAN 73 % (41-73); TOTAL CELLS COUNTED 100
--- NOTE | 2020-04-24 06:08 | NUR ---
SHIFT SUMMARY PT CON'T TO HAVE NO CHANGES FROM BASELINE. HE IS STRONGER AND MORE HELPFUL WITH HIS TURNS. HE IS USING HIS CALL LIGHT FREQUENTLY. PT IS CONSTANTLY ASKING FOR ICE AND PAIN MEDS. WHEN ASKED ABOUT PAIN RELIEF HE HAS MANY DIFFERENT ANSWERS. MOSTLY HIS PAIN IS STILL A 6 OR 7. NO CHANGES TO PT'S ABD WHICH IS THE SOUCE OF HIS PAIN. PT HAD NO BM OF YET. GOOD URINE OUTPUT THROUGH WAGGONER CATH. PT CON'T TO HAVE IV MEDS RUNNING ORDERED. WILL CON'T TO MONITOR AND KEEP PT SAFE TILL REPORT TO ONCOMING RN.
--- NOTE | 2020-04-24 07:59 | NUR ---
PT WIDE AWAKE IN BED. ORIENTED TO SELF, PLACE, DATE, AND SITUATION. PT CALM, COOPERATIVE AND CHILD-LIKE. PT WATCHING PRESCHOOL CARTOONS, AND STATES THEY ARE GOOD FOR HIM BECAUSE "IT HELPS ME LEARN A LOT". PT ABLE TO ADVOCATE NEEDS. PT TALKS NON-STOP TO SELF IN ROOM AND LAUGHS FREQUENTLY. CNVI 0/5, BUT WHEN ASKED STATES HE HAS SHARP PAIN AND POINTS TO HIS INCISION. ABD SOMEWHAT FIRM AND DISTENDED. BOWEL TONES ACTIVE BUT TYMPANIC. SATS 99% ON 5L VIA N/C. O2 DECREASED TO 2L, SATS >90%. TPN INFUSING AT 77CC/HR. ICE CHIPS AND POPSICLES OKAYED BY DR JANE. PT IS TOLERATING THESE WELL. PLAN: OOB TO CHAIR. PT/OT, DECREASE O2 TOLERATED, PULM TOILET, POSSIBLY ADVANCE DIET. IF PT CONT TO NEED TPN PT WILL PROBABLY NEED A PICC LINE. CENTRAL LINE TO NECK BECOMES CONSISTANTLY SATURATED.
--- NOTE | 2020-04-24 09:46 | NUR ---
PT OOB TO CHAIR USING LIFT. PT TOLERATED WELL. SOME OPEN SKIN TO INTERGLUTEAL CLEFT WHERE SKIN WAS DARKENED ON LAST ASSESMMENT BY MYSELF. MEPILEX PLACED TO AREA.
--- NOTE | 2020-04-24 12:08 | NUR ---
PT HAD THOUGHT HE HAD A BM. PT TRANSFERED TO BED TO CLEAN; NO BM. PT IS PASSING FLATUS WELL. PT CONT TO TOLERATE POPSICLES AND ICE CHIPS WELL W/O NAUSEA OR REFLUX. COUGH STRONG, ABLE TO CLEAR AIRWAY AND SX SELF WITH YANK. DR JANE CALLED AND GIVEN UPDATE. CENTRAL LINE TO BE DC'D IT IS CONTINUALLY WET WITH A PEALING DRSG. PICC WILL BE PLACED IF NEEDED FOR TPN IF NEEDED. DR JANE TO EVALUATE TODAY. TPN WILL BE PLACED ON HOLD IN THE MEANTIME PER DR OCHOA.
--- NOTE | 2020-04-24 16:40 | NUR ---
PT DANGLED ON EDGE OF BED FOR AT LEAST 15MIN W OT/ AND THIS RN. PT ABLE TO BALANCE AND HOLD HIS OWN WEIGHT. PT TOLERATED VERY WELL. PT W INCREASED BELCHING WHILE AT SIDE OF BED. PT TRANSFERED TO ROOM 215 IN STABLE CONDITION.
--- NOTE | 2020-04-24 17:52 | NUR ---
ARRIVAL TO UNIT ARRIVAL TO UNIT FROM ICU. PT ALERT AND ORIENTED TO SELF, PLACE, AND EVENT. PT DOES YELL OUT AND NEEDS FREQUENT REORIENTING TO USE THE CALL LIGHT. PT APPEARS TO BE COMFORTABLE AT REST. REPOSITIONED TO SEMI FOWLERS POSITION. ELANA DRESSING INTACT. ON 2L VIA NC. GIVEN X1 POPSICLE. ATOMIC WELDER VERB THAT CENTRAL LINE DC'D AND ATTEMPTED TO NOTIFY SURGEON R/T CPN ORDERS AND POSSIBLY ADVANCING DIET. CALL LIGHT WITHIN REACH. SIDE RAILS UPX2 AND BED IN LOW POSITION.
--- NOTE | 2020-04-25 04:07 | NUR ---
SHIFT SUMMARY: PT POD#7 FOR BOWEL RESECTION. MIDLINE ELANA DRESSING CHANGED THIS SHIFT. PT PASSING A LOT OF FLATUS. PT HAD ONE MODERATE SIZE LIQ BM TODAY. INCONTINENT. ABD DISTENDED AND FIRM. HYPOACTIVE BT THROUGHOUT. WAGGONER DRAINING DARK YELLOW URINE. PT TOLERATING ICE CHIPS. CLINIMIX INFUSING PER ORDERS. PT REPOSITIONED Q2. MEPILEX TO COCCYX CHANGED THIS SHIFT. PT MEDICATED WITH DILAUDID X1 AND ATIVAN X1. PT HOLLERING OUT AT TIMES AND APPEARS ANXIOUS. COOPERATIVE AND FOLLOWING DIRECTIONS.
[2020-04-25 05:23] LABS: BASOPHILS ABSOLUTE AUTO 0.04 K/mm3 (0.00-0.23); BASOPHILS PERCENT AUTO 1 % (0-2); EOSINOPHILS ABSOLUTE AUTO 0.02 K/mm3 (0.00-0.68); EOSINOPHILS PERCENT AUTO 0 % (0-6); Hematocrit 36.3 % (37.0-53.0); Hemoglobin 11.5 g/dL (13.5-17.5); IMMATURE GRAN ABSOLUTE AUTO 0.34 K/mm3 (0.00-0.10); IMMATURE GRAN PERCENT AUTO 4 % (0-1); LYMPHOCYTES ABSOLUTE AUTO 0.44 K/mm3 (0.84-5.20); LYMPHOCYTES PERCENT AUTO 5 % (21-46); MONOCYTES ABSOLUTE AUTO 0.36 K/mm3 (0.16-1.47); MONOCYTES PERCENT AUTO 4 % (4-13); Mean Corpuscular HGB 30.3 pg (26.0-34.0); Mean Corpuscular HGB Conc 31.7 g/dL (31.5-36.5); Mean Corpuscular Volume 96 fL (80-100); Mean Platelet Volume 11.9 fL (9.1-12.4); NEUTROPHILS ABSOLUTE AUTO 6.89 K/mm3 (1.96-9.15); NEUTROPHILS PERCENT AUTO 85 % (41-73); Platelet Count 243 K/mm3 (150-400); RDW Coefficient Variation 15.2 % (11.7-14.2); RDW Standard Deviation 52.2 fL (35.1-46.3); White Blood Cell Count 8.09 K/mm3 (4.00-11.30)
[2020-04-25 05:44] LABS: Albumin, Blood 1.4 g/dL (3.4-5.0); Albumin/Globulin Ratio 0.3 (0.8-1.8); Bilirubin, Total 0.7 mg/dL (0.1-1.0); Bun/Creatinine Ratio 58.5 (12.0-20.0); Calcium, Blood 7.8 mg/dL (8.5-10.1); Creatinine, Blood 1.93 mg/dL (0.60-1.20); Globulin, Blood 4.1 g/dL (2.2-4.0); Magnesium, Blood 2.8 mg/dL (1.6-2.4); Phosphorus, Blood 4.2 mg/dL (2.5-4.9); Potassium, Blood 3.6 mmol/L (3.5-5.5); Total Protein, Blood 5.5 g/dL (6.4-8.2)
--- NOTE | 2020-04-25 16:44 | NUR ---
Visited with Franki this afternoon. He is laying in bed talking to himself. He reports that he feels "Much better now that I can eat." He reports "A little" pain to his lower abd when asked about discomfort. He has no complaints at this time.
--- NOTE | 2020-04-25 17:34 | NUR ---
SHIFT SUMMARY POD 7 PT AAOX4 WITH SOME INTERMITTENT CONFUSION AND SOME NONSENSICAL STATMENTS, DIFFICULT TO UNDERSTAND AT TIMES. LARGE AMOUNT OF SS DRAINAGE FROM ABDOMINAL DRESSING. CHANGED MULTIPLE TIMES TODAY. PT DENIES PAIN IN ABDOMEN. MULTIPLE LIQUID BROWN STOOLS T/O SHIFT. REPOSITIONING WELL, HELPS WITH REPOSITION. ORDERS RECIEVED TO INCREASE DIET TO REGULAR.
[2020-04-25 18:52] LABS: Adenovirus F 40/41 Not Detected (NOT DETECT); Astrovirus Not Detected (NOT DETECT); Campylobacter Sp Not Detected (NOT DETECT); Cryptosporidium Not Detected (NOT DETECT); Cyclospora Cayetanensis Not Detected (NOT DETECT); E. Coli O157 Not Detected (NOT DETECT); Entamoeba Histolytica Not Detected (NOT DETECT); Enteroaggregative E. coli-EAEC Not Detected (NOT DETECT); Enteropathogenic E. coli-EPEC Not Detected (NOT DETECT); Enterotoxigenic E. coli-ETEC Not Detected (NOT DETECT); Giardia Lamblia Not Detected (NOT DETECT); Norovirus GI/GII Not Detected (NOT DETECT); Plesiomonas Shigelloides Not Detected (NOT DETECT); Rotavirus A Not Detected (NOT DETECT); Salmonella Sp Not Detected (NOT DETECT); Sapovirus Not Detected (NOT DETECT); Shiga Toxin-prod E. coli-STEC Not Detected (NOT DETECT); Shigella/Enteroin E. coli-EIEC Not Detected (NOT DETECT); Vibrio Cholerae Not Detected (NOT DETECT); Vibrio Sp Not Detected (NOT DETECT); Yersinia Enterocolitica Not Detected (NOT DETECT)
--- NOTE | 2020-04-26 05:06 | NUR ---
SHIFT SUMMARY POD#8. AAOX4. DISCOMFORT CONTROLLED WITH 1MG IV DILAUDID X2. NO NAUSEA/EMESIS. ABD INCISION WITH ABD PADS CHANGED X1 THIS SHIFT. MIDLINE ABD INCISION WITH NINA, REDNESS NOTED ALONG INCISION WITH X1 SMALL WOUND SEPERATION NOTED ABOVE UMBILICOUS. LOOSE STOOL CONTINUES THIS SHIFT WITH MULTIPLE LIQUID BROWN STOOLS, AMOUNT DECREASED FROM PREVIOUS SHIFT. WOUND TO COCCYX WITH MEPILEX CHANGED WITH ATTENDS CHANGES. TURN Q2H WITH PILLOWS. NO ACUTE CHANGES OVER NIGHT. PT CURRENTLY RESTING WITH CALL LIGHT IN REACH.
[2020-04-26 05:18] LABS: BASOPHILS ABSOLUTE AUTO 0.02 K/mm3 (0.00-0.23); BASOPHILS PERCENT AUTO 0 % (0-2); EOSINOPHILS ABSOLUTE AUTO 0.02 K/mm3 (0.00-0.68); EOSINOPHILS PERCENT AUTO 0 % (0-6); Hematocrit 35.4 % (37.0-53.0); Hemoglobin 10.9 g/dL (13.5-17.5); IMMATURE GRAN ABSOLUTE AUTO 0.19 K/mm3 (0.00-0.10); IMMATURE GRAN PERCENT AUTO 2 % (0-1); LYMPHOCYTES ABSOLUTE AUTO 0.38 K/mm3 (0.84-5.20); LYMPHOCYTES PERCENT AUTO 4 % (21-46); MONOCYTES ABSOLUTE AUTO 0.46 K/mm3 (0.16-1.47); MONOCYTES PERCENT AUTO 5 % (4-13); Mean Corpuscular HGB 29.9 pg (26.0-34.0); Mean Corpuscular HGB Conc 30.8 g/dL (31.5-36.5); Mean Corpuscular Volume 97 fL (80-100); NEUTROPHILS ABSOLUTE AUTO 8.37 K/mm3 (1.96-9.15); NEUTROPHILS PERCENT AUTO 89 % (41-73); Platelet Count 264 K/mm3 (150-400); RDW Coefficient Variation 15.2 % (11.7-14.2); Red Blood Cell Count 3.64 M/mm3 (4.30-5.90); White Blood Cell Count 9.44 K/mm3 (4.00-11.30)
[2020-04-26 05:50] LABS: Albumin, Blood 1.3 g/dL (3.4-5.0); Albumin/Globulin Ratio 0.4 (0.8-1.8); Bilirubin, Total 0.6 mg/dL (0.1-1.0); Bun/Creatinine Ratio 55.4 (12.0-20.0); Calcium, Blood 7.3 mg/dL (8.5-10.1); Creatinine, Blood 1.66 mg/dL (0.60-1.20); Globulin, Blood 3.7 g/dL (2.2-4.0); Magnesium, Blood 2.5 mg/dL (1.6-2.4); Phosphorus, Blood 3.9 mg/dL (2.5-4.9); Potassium, Blood 3.6 mmol/L (3.5-5.5)
--- NOTE | 2020-04-26 19:56 | NUR ---
SHIFT SUMMARY PT IS POD#9 FOR EX-LAP WITH SMALL BOWEL RESECTION. PT HAS BEEN ALERT AND ORIENTED TODAY, HE IS SLOW TO RESPOND AT TIMES AND HIS SPEECH IS SLURRED WHICH IS PT'S BASELINE. PT IS TOLERATING A REGULAR DIET; HE HAD SOME COUGHING AND GURGGLING AFTER EATING PUDDING. ST CONSULT WAS REQUESTED RELATED TO SWALLOWING CONCERNS. PT APPEARED TO TOLERATE OTHER TEXTURES AND THIN LIQUIDS WELL. PT COMPLAINED OF SHORTNESS OF BREATH AT TIMES THIS SHIFT AND HAD SEVERAL BREATHING TREATMENTS FROM RT. PT NOTED TO HAVE BLE EDEMA. PT WAS GIVEN ALBUMIN AND LASIX TO HELP WITH EDEMA AND POSSIBLE FLUID OVERLOAD. PT HAS HAD GOOD URINE OUTPUT IN HIS WAGGONER CATHETER, URINE IS DARK AND CONCENTRATED. PT HAS HAD SEVERAL LIQUID STOOLS THIS SHIFT AND HAS BEEN INCONTINENT AT TIMES. FAMILY HAS VISITED AND PROVIDED SUPPORT FOR THE PT. HE WORKED WITH THERAPY TODAY AND WAS A 2 PERSON MODERATE ASSIST TO SIT AT THE EDGE OF THE BED. PT WAS ABLE TO STAND BUT WAS TO WEAK TO TRANSFER TO THE CHAIR. VSS. WILL MONITOR UNTIL REPORT TO ONCOMING RN.
--- NOTE | 2020-04-27 06:04 | NUR ---
SHIFT SUMMARY LYING IN SEMI FOWLERS WHILE WATCHING TV. WAS MEDICATED FOR PAIN X1. HAS BEEN ABLE TO ASSIST WITH TURNING IN BED FOR CHANING. HAD 3 DARK BROWN LIQUID AND LOOSE STOOLS THIS SHIFT. EACH DECRESING IN VOLUME. ABUNDANT FLATUS PASSED THROUGHT SHIFT. DENIES FURTHER NEEDS OR WANTS AT THIS TIME. SAFETY MEASURES IN PLACE. WILL CONTINUE TO MONITOR AND GIVE HAND OFF TO ONCOMING SHIFT USING SBAR.
[2020-04-27 07:06] LABS: BASOPHILS ABSOLUTE AUTO 0.02 K/mm3 (0.00-0.23); BASOPHILS PERCENT AUTO 0 % (0-2); EOSINOPHILS ABSOLUTE AUTO 0.03 K/mm3 (0.00-0.68); EOSINOPHILS PERCENT AUTO 0 % (0-6); Hemoglobin 10.1 g/dL (13.5-17.5); IMMATURE GRAN ABSOLUTE AUTO 0.16 K/mm3 (0.00-0.10); IMMATURE GRAN PERCENT AUTO 2 % (0-1); LYMPHOCYTES ABSOLUTE AUTO 0.36 K/mm3 (0.84-5.20); LYMPHOCYTES PERCENT AUTO 4 % (21-46); MONOCYTES ABSOLUTE AUTO 0.44 K/mm3 (0.16-1.47); MONOCYTES PERCENT AUTO 5 % (4-13); Mean Corpuscular HGB 30.5 pg (26.0-34.0); Mean Corpuscular HGB Conc 31.6 g/dL (31.5-36.5); Mean Corpuscular Volume 97 fL (80-100); Mean Platelet Volume 11.3 fL (9.1-12.4); NEUTROPHILS ABSOLUTE AUTO 7.14 K/mm3 (1.96-9.15); NEUTROPHILS PERCENT AUTO 88 % (41-73); Platelet Count 273 K/mm3 (150-400); RDW Coefficient Variation 15.3 % (11.7-14.2); RDW Standard Deviation 54.4 fL (35.1-46.3); Red Blood Cell Count 3.31 M/mm3 (4.30-5.90); White Blood Cell Count 8.15 K/mm3 (4.00-11.30)
[2020-04-27 07:28] LABS: Albumin, Blood 1.6 g/dL (3.4-5.0); Albumin/Globulin Ratio 0.5 (0.8-1.8); Bilirubin, Total 0.6 mg/dL (0.1-1.0); Bun/Creatinine Ratio 46.8 (12.0-20.0); Calcium, Blood 7.3 mg/dL (8.5-10.1); Creatinine, Blood 1.58 mg/dL (0.60-1.20); Globulin, Blood 3.5 g/dL (2.2-4.0); Magnesium, Blood 2.2 mg/dL (1.6-2.4); Phosphorus, Blood 3.4 mg/dL (2.5-4.9); Potassium, Blood 3.4 mmol/L (3.5-5.5); Total Protein, Blood 5.1 g/dL (6.4-8.2)
--- NOTE | 2020-04-27 09:46 | NUR ---
WAGGONER CATHETER REMOVED AT 0800. WILL MONITOR FOR VOID.
--- NOTE | 2020-04-27 16:15 | NUR ---
PT IS A LIFT ASSIST TO GET OUT OF BED. CYANIDE CASE HARDENER PADMAJA NOTIFIED HE WILL NEED A LIFT ROOM WHEN AVALIABLE.
--- NOTE | 2020-04-27 19:28 | NUR ---
SHIFT SUMMARY PT IS POD#10 FOR EXPLORATORY LAP AND LYSIS OF ADHESIONS. MIDLINE DRESSING WAS CHANGED TODAY, NINA REMAIN IN PLACE. PT HAS SCAN SEROSANGUINOUS DRAINAGE. PT IS TOLERATING A REGULAR DIET WITHOUT INCREASED PAIN OR NAUSEA. PT IS SHORT OF BREATH WITH ACTIVITY. PT HAS BLE EDEMA, LUNGS SOUNDS ARE CLEAR. PT HAS HAD ALBUMIN X2 AND IV LASIX TODAY. PT WAS PLACED ON A FLUID RESTRICTION OF 1500ML. SPEECH THERAPY ALSO EVALUATED PT AND PLACED SOME RESTRICTIONS. PT'S FAMILY BRINGS IN FOOD AND SNACKS. PT EDUCATED TO NOTIFY STAFF BEFORE CONSUMING ANY FOOD OR DRINK FROM FAMILY; IT MAY RESULT IN ASPIRATION, CONSUMING TO MUCH FLUID OR INCREASED BLOOD GLUCOSE. PT'S BUTTOCKS IS EXCORIATED WITH A STAGE 2 PRESSURE INJURY. UNABLE TO KEEP ALLEVYN DRESSING IN PLACE R/T FREQUENT STOOLS. PT HAS BEEN ASSISTED TO REPOSITION FREQUENTLY AND BARRIER CREAM HAS BEEN APPLIED WITH ATTENDS CHANGES. WAGGONER CATHETER WAS REMOVED THIS MORNING, PT HAS BEEN ABLE TO VOID. PT IS INCONTINENT OF URINE AND STOOL AT TIMES. VSS. WILL MONITOR UNTIL REPORT TO ONCOMING RN.
[2020-04-28 04:36] LABS: BASOPHILS ABSOLUTE AUTO 0.01 K/mm3 (0.00-0.23); BASOPHILS PERCENT AUTO 0 % (0-2); EOSINOPHILS ABSOLUTE AUTO 0.03 K/mm3 (0.00-0.68); EOSINOPHILS PERCENT AUTO 0 % (0-6); IMMATURE GRAN ABSOLUTE AUTO 0.17 K/mm3 (0.00-0.10); IMMATURE GRAN PERCENT AUTO 2 % (0-1); LYMPHOCYTES ABSOLUTE AUTO 0.42 K/mm3 (0.84-5.20); LYMPHOCYTES PERCENT AUTO 6 % (21-46); MONOCYTES PERCENT AUTO 6 % (4-13); Mean Corpuscular HGB 30.2 pg (26.0-34.0); Mean Corpuscular Volume 97 fL (80-100); Mean Platelet Volume 10.2 fL (9.1-12.4); NEUTROPHILS ABSOLUTE AUTO 6.25 K/mm3 (1.96-9.15); NEUTROPHILS PERCENT AUTO 86 % (41-73); Platelet Count 283 K/mm3 (150-400); RDW Coefficient Variation 15.2 % (11.7-14.2); RDW Standard Deviation 54.6 fL (35.1-46.3); Red Blood Cell Count 2.98 M/mm3 (4.30-5.90); White Blood Cell Count 7.28 K/mm3 (4.00-11.30)
--- NOTE | 2020-04-28 04:56 | NUR ---
SHIFT SUMMARY EXPLORATORY LAP/SB RESECTION POD10, A/O X4, VSS, TOLERATING PO, VOIDING IN DEPENDS, 2 BM DURING SHIFT BECOMING MORE FORMED, ORANGE CREAM APPLIED TO COCCYX, FLOATING HIPS W/ BILAT PILLOWS TO REDUCE PRESSURE COCCYX. STAGE 2 DECUBITUS ON COCCYX, REPOSITIONING/FLOATING/BARRIER CREAM APPLIED TO PROMOTE HEALING. FLUID RESTRICTION IN PLACE PER ORDERS, PITTING EDEMA NOTED ON DISTAL END BLE, ONE TIME IV LASIX GIVEN PER EMAR IN ADDITION TO NORMAL PM ORAL LASIX, REDUCED PITTING NOTED BLE. CALL LIGHT IN REACH. WILL CONTINUE TO MONITOR AND REPORT TO ONCOMING DAY RN.
[2020-04-28 05:08] LABS: Albumin, Blood 1.9 g/dL (3.4-5.0); Anion Gap 4 mmol/L (6-16); Blood Urea Nitrogen 58 mg/dL (8-24); Bun/Creatinine Ratio 37.2 (12.0-20.0); CO2, Blood 26 mmol/L (21-32); Calcium, Blood 7.2 mg/dL (8.5-10.1); Chloride, Blood 114 mmol/L (98-108); Creatinine, Blood 1.56 mg/dL (0.60-1.20); Glomerular Filtration Rate 46 (60-); Glucose, Blood 120 mg/dL (70-99); Magnesium, Blood 2.1 mg/dL (1.6-2.4); Potassium, Blood 3.8 mmol/L (3.5-5.5); Sodium, Blood 144 mmol/L (136-145)
--- NOTE | 2020-04-28 16:25 | NUR ---
SHIFT SUMMARY: VSS, NO ACUTE CHANGES. PT REMAINED A/O X 4, PLEASANT, TOLERATED DIET. PT USES CALL LIGHT OFTEN (3-5 X PER HR), IS EDUCATED ON NURSE ROUNDING MULTIPLE TIMES. PT REQUESTS POPSICLES REPEATEDLY, IS EDUCATED ON DIABETIC DIET WELL 1.5L FLUID RESTRICTION. PT WEARS ATTENDS, ALSO CALLS FOR URINAL. PT HAS HAD EXTRA LARGE SOFT ALMOST FORMED BM THIS SHIFT, NOT LIQUID. PT HAS RECEIVED PHONE CALLS FROM [facility] AND HAS CALLED FRIENDS/FAMILY ON HIS CELL PHONE. DR MANE HAS ROUNDED ON PT. PT/OT HAS CO-TREATED PATIENT. RECOMMENDATION OF LIFT ROOM WHEN ONE BECOMES AVAILABLE, PT IS 2-3 PERSON MAX ASSIST, SAT AT BEDSIDE FOR BREAKFAST THIS MORNING. EDUCATED/REORIENTED PT RE: SWALLOW PRECAUTIONS, SITTING UP AT 90 DEGREES TO EAT/DRINK, NO STRAWS, MECHANICAL SOFT DIET. BT ACTIVE. MIDLINE INCISION WITH ABD DRESSING SHOWS SMALL AMOUNT OF SEROSANGUINOUS DRAINAGE. COCCYX/GLUTEAL CLEFT WITH MEPILEX IN PLACE
--- NOTE | 2020-04-28 17:36 | NUR ---
pt has visitors in the room
[2020-04-29 04:03] LABS: BASOPHILS ABSOLUTE AUTO 0.02 K/mm3 (0.00-0.23); BASOPHILS PERCENT AUTO 0 % (0-2); EOSINOPHILS ABSOLUTE AUTO 0.04 K/mm3 (0.00-0.68); EOSINOPHILS PERCENT AUTO 1 % (0-6); Hematocrit 31.9 % (37.0-53.0); Hemoglobin 9.8 g/dL (13.5-17.5); IMMATURE GRAN ABSOLUTE AUTO 0.18 K/mm3 (0.00-0.10); IMMATURE GRAN PERCENT AUTO 2 % (0-1); LYMPHOCYTES ABSOLUTE AUTO 0.57 K/mm3 (0.84-5.20); LYMPHOCYTES PERCENT AUTO 7 % (21-46); MONOCYTES ABSOLUTE AUTO 0.56 K/mm3 (0.16-1.47); MONOCYTES PERCENT AUTO 7 % (4-13); Mean Corpuscular HGB 30.2 pg (26.0-34.0); Mean Corpuscular HGB Conc 30.7 g/dL (31.5-36.5); Mean Corpuscular Volume 98 fL (80-100); Mean Platelet Volume 10.5 fL (9.1-12.4); NEUTROPHILS ABSOLUTE AUTO 7.09 K/mm3 (1.96-9.15); NEUTROPHILS PERCENT AUTO 84 % (41-73); Platelet Count 343 K/mm3 (150-400); RDW Coefficient Variation 15.3 % (11.7-14.2); RDW Standard Deviation 55.5 fL (35.1-46.3); Red Blood Cell Count 3.25 M/mm3 (4.30-5.90); White Blood Cell Count 8.46 K/mm3 (4.00-11.30)
--- NOTE | 2020-04-29 04:12 | NUR ---
SHIFT SUMMARY PT HAS BEEN A/O DURING THE NIGHT, CONFUSED/FORGETFUL AT TIMES. USES CALL LIGHT MOST OF THE TIME AND OCCASIONALY CALLS OUT. PT REPORTED ABD PAIN; TYLENOL DID NOT HELP MUCH. MED WITH DILAUDED PER ORDERS. PT REPORTED THIS HELPED "A LOT". PT HAS BEEN REPOSITIONED MULTIPLE TIMES DURING THE SHIFT. ATTENS IN PLACE AND CHANGED PRN. PT USING URINAL AND BEDPAN, BUT OCCASIONALLY HAS INCONTINENT VOIDS. PT DID HAVE TWO LOOSE BM'S DURING THE NIGHT. DRESSING TO ABD CHANGED TWICE SO FAR DUE TO SATURATION. NO ACUTE CHANGES OVERNIGHT. ASSISTED WITH ADL'S PRN.
[2020-04-29 04:28] LABS: Albumin, Blood 1.9 g/dL (3.4-5.0); Anion Gap 7 mmol/L (6-16); Blood Urea Nitrogen 43 mg/dL (8-24); Bun/Creatinine Ratio 27.4 (12.0-20.0); CO2, Blood 23 mmol/L (21-32); Calcium, Blood 7.5 mg/dL (8.5-10.1); Chloride, Blood 115 mmol/L (98-108); Creatinine, Blood 1.57 mg/dL (0.60-1.20); Glomerular Filtration Rate 46 (60-); Glucose, Blood 136 mg/dL (70-99); Magnesium, Blood 2.1 mg/dL (1.6-2.4); Phosphorus, Blood 3.3 mg/dL (2.5-4.9); Potassium, Blood 4.4 mmol/L (3.5-5.5); Sodium, Blood 145 mmol/L (136-145)
--- NOTE | 2020-04-29 17:10 | NUR ---
SHIFT SUMMARY PT A&OX3, CAN BE FORGETFUL/REORIENTS EASILY/PLEASANT, USES CALL LIGHT APPROPRIATELY; VSS, CBG AC/HS. POD12 EX LAP RESECTION, ABD BANDAGE CHANGED X1. PAIN MANAGED WITH TYLENOL. PT REPOSITIONS SELF WELL. ROSA PO/DYSPHAGIA PRECAUTIONS/ORAL CARE, WITH MEAL ASSIST PROVIDED. WILL REPORT TO ONCOMING NOC RN.
[2020-04-30 04:37] LABS: BASOPHILS ABSOLUTE AUTO 0.01 K/mm3 (0.00-0.23); BASOPHILS PERCENT AUTO 0 % (0-2); EOSINOPHILS ABSOLUTE AUTO 0.06 K/mm3 (0.00-0.68); EOSINOPHILS PERCENT AUTO 1 % (0-6); Hematocrit 30.8 % (37.0-53.0); Hemoglobin 9.5 g/dL (13.5-17.5); IMMATURE GRAN ABSOLUTE AUTO 0.16 K/mm3 (0.00-0.10); IMMATURE GRAN PERCENT AUTO 2 % (0-1); LYMPHOCYTES ABSOLUTE AUTO 0.45 K/mm3 (0.84-5.20); LYMPHOCYTES PERCENT AUTO 5 % (21-46); MONOCYTES ABSOLUTE AUTO 0.58 K/mm3 (0.16-1.47); MONOCYTES PERCENT AUTO 7 % (4-13); Mean Corpuscular HGB Conc 30.8 g/dL (31.5-36.5); Mean Corpuscular Volume 97 fL (80-100); Mean Platelet Volume 10.1 fL (9.1-12.4); NEUTROPHILS ABSOLUTE AUTO 7.61 K/mm3 (1.96-9.15); NEUTROPHILS PERCENT AUTO 86 % (41-73); Platelet Count 353 K/mm3 (150-400); RDW Coefficient Variation 15.3 % (11.7-14.2); Red Blood Cell Count 3.17 M/mm3 (4.30-5.90); White Blood Cell Count 8.87 K/mm3 (4.00-11.30)
[2020-04-30 05:05] LABS: Albumin, Blood 1.6 g/dL (3.4-5.0); Anion Gap 3 mmol/L (6-16); Blood Urea Nitrogen 34 mg/dL (8-24); Bun/Creatinine Ratio 24.3 (12.0-20.0); CO2, Blood 25 mmol/L (21-32); Calcium, Blood 7.6 mg/dL (8.5-10.1); Chloride, Blood 114 mmol/L (98-108); Glomerular Filtration Rate 52 (60-); Glucose, Blood 97 mg/dL (70-99); Magnesium, Blood 1.8 mg/dL (1.6-2.4); Phosphorus, Blood 2.7 mg/dL (2.5-4.9); Potassium, Blood 4.6 mmol/L (3.5-5.5); Sodium, Blood 142 mmol/L (136-145); Triglycerides 131 mg/dL (30-160)
--- NOTE | 2020-04-30 05:44 | NUR ---
SHIFT SUMMARY PT HAS BEEN A/O, FORGETFUL AT TIMES BUT FOLLOWS DIRECTIONS. USING CALL LIGHT FREQUENTLY; PT HAS BEEN REPOSITIONED MANY TIMES, AT LEAST 1-2 TIMES PER HOUR. PT ALSO HAD SEVERAL INCONTINENT SOFT/LOOSE BM'S AND HAS BEEN CHANGED MULT TIMES PRN. PT TOLERATING PO INTAKE W/O NAUSEA. DRESSING TO ABD CHANGED TWICE DURING THE SHIFT FOR SATURATION. PAIN MANAGED WITH TYLENOL, REPOSITIONING, AND DILAUDED FOR BREAKTHROUGH PAIN. PT REPORTS ABD PAIN HAS BEEN GETTING WORSE OVER THE LAST FEW DAYS.
--- NOTE | 2020-04-30 17:40 | NUR ---
SHIFT SUMMARY PT A&OX3, VSS, CBGS CNI. POD13 EXP LAP BOWEL RESECT, MIDLINE NINA UPPER ABD CDI/LOWER ABD REMOVED/DEHISC -WET/DRY DRESSING CHANGE BID QSHIFT. PAIN MANAGED WITH 0.5 MG DILAUDID AND TYLENOL. ABX PO VANCO. ATTENDS ON, MULTIPLE BMS TODAY; VOIDING INCONTINENT, OCC CALLS FOR URINAL. LIFT USED TO MOVE PT TO CHAIR TODAY; DIFFICULT FOR PT TO GET COMFORTABLE AND EVENTUALLY MOVED BACK TO BED; PT REPOSITIONS WELL IN BED W/1 PP. ROSA PO, ORAL CARE PROVIDED T/O SHIFT. [facility] EDU & ENC/DEMONSTRATED T/O SHIFT. WILL REPORT TO ONCOMING GINA RN.
--- NOTE | 2020-05-01 04:19 | NUR ---
SHIFT SUMMARY: DANIELE AROUSES EASILY AND RESPONDS ACCORDING TO HIS BASELINE. HE HAS SLURRED/GARBLED SPEECH. HE HAS NOT USED HIS CALL LIGHT THIS SHIFT. HIS BP WAS LOWER THIS AM THAN DURING THE DAY, CONSISTENT WITH HIS PREVIOUS TREND. HE HAS COMPLAINED OF PAIN FOR WHICH HE REQUESTED "THE PAIN SHOT". HE WAS MEDICATED WITH DILAUDID. PT TURNS AND REPOSITIONS HIMSELF IN BED WHEN ASKED. ATTENDS IN PLACE. BED ALARM ON. DYSPHAGIA PRECAUTIONS. O2 PLACED, MAINTAINING SATURATIONS ABOVE 92%. HE IS LYING IN BED WITH HIS CALL LIGHT IN REACH.
--- NOTE | 2020-05-01 17:58 | NUR ---
SHIFT SUMMARY PT IS POD#14 FROM EX-LAP WITH SMALL BOWEL RESECTION. PT IS ALERT AND ORIENTED. PT COMPLAINED OF PAIN AND WAS GIVEN PO NORCO. 2 TABS OF NORCO APPEARS TO WORK WELL FOR THE PATIENTS PAIN. PT HAS BEEN EDUCATED TO USE HIS CALL LIGHT. PT WAS ALSO EDUCATED TO NOTIFY STAFF OF EVERYTHING HE NEEDS BEFORE GOWNS AND GLOVES ARE REMOVED. PT CALLS FREQUENTLY AND OFTEN CALLS SHORTLY AFTER STAFF HAS ASSISTED THE PATIENT. FAMILY HAS HAS ALSO BEEN EDUCATED MULTIPLE TIMES TO USE THE CALL LIGHT SINCE GOING IN AND OUT OF THE ROOM COULD RESULT IN SPREADING C.DIFF. PT DECLINES TO SIT AT 90 DEGREES FOR MEALS, DESPITE FREQUENT EDUCATION ABOUT THE RISK OF ASPIRATION. PT HAD PASSED SOFT STOOLS TODAY. PT IS AWAITING DISCHARGE HOME WITH HOME HEALTH VS SNF. PT IS ABLE TO REPOSITION HIMSELF IN BED. HE IS ABLE TO SCOOT HIMSELF UP AND ROLLS EASILY FROM SIDE TO SIDE. WILL CONTINUE TO MONITOR.
--- NOTE | 2020-05-02 04:11 | NUR ---
SHIFT SUMMARY POD 15 EX LAP WITH RESEC PT AA0X4, WITH INTERMITTENT CONFUSION AND DIFFICULTY MAKING NEEDS MET AT TIMES. PT REFUSES TO USE CALL LIGHT AND CONTINUES TO YELL OUT. PT CONT OF VOID DURING SHIFT AFTER EDUCATION. BM SOFT AND BECOMING MORE FORMED. ABLE TO USE BED PAIN. MEDICATED FOR PAIN PER EMAR. TOLERATING PO WELL. REFUSES TO SIT HEAD OF BED UP 90 DEGREES FOR EATING. PLAN IS TO DC TO SNF ONCE STOOL IS NOT LOOSE.
[2020-05-02 05:14] LABS: BASOPHILS ABSOLUTE AUTO 0.02 K/mm3 (0.00-0.23); BASOPHILS PERCENT AUTO 0 % (0-2); EOSINOPHILS ABSOLUTE AUTO 0.05 K/mm3 (0.00-0.68); EOSINOPHILS PERCENT AUTO 1 % (0-6); Hematocrit 28.5 % (37.0-53.0); Hemoglobin 8.9 g/dL (13.5-17.5); IMMATURE GRAN ABSOLUTE AUTO 0.13 K/mm3 (0.00-0.10); IMMATURE GRAN PERCENT AUTO 2 % (0-1); LYMPHOCYTES PERCENT AUTO 7 % (21-46); MONOCYTES ABSOLUTE AUTO 0.74 K/mm3 (0.16-1.47); MONOCYTES PERCENT AUTO 9 % (4-13); Mean Corpuscular HGB 30.5 pg (26.0-34.0); Mean Corpuscular HGB Conc 31.2 g/dL (31.5-36.5); Mean Corpuscular Volume 98 fL (80-100); Mean Platelet Volume 10.1 fL (9.1-12.4); NEUTROPHILS PERCENT AUTO 81 % (41-73); Platelet Count 339 K/mm3 (150-400); RDW Coefficient Variation 15.8 % (11.7-14.2); Red Blood Cell Count 2.92 M/mm3 (4.30-5.90); White Blood Cell Count 8.14 K/mm3 (4.00-11.30)
[2020-05-02 05:33] LABS: Bun/Creatinine Ratio 18.7 (12.0-20.0); Calcium, Blood 7.6 mg/dL (8.5-10.1); Creatinine, Blood 1.55 mg/dL (0.60-1.20); Potassium, Blood 5.6 mmol/L (3.5-5.5)
[2020-05-02] MEDS ORDERED: ACET325 PO (12:43)
[2020-05-02] MEDS ORDERED: ALBU90OI INH (12:45)
[2020-05-02] MEDS ORDERED: Banatrol1 EACH PO ×2 (12:45)
[2020-05-02] MEDS ORDERED: Pepto-Bismol262 M1 PO ×2 (12:46)
[2020-05-02] MEDS ORDERED: HYDR1TAB94 PO ×2 (12:47)
[2020-05-02] MEDS ORDERED: Lasix20 MG PO ×2 (12:47)
[2020-05-02] MEDS ORDERED: BASAGLAR K100 UNIT/1 SC (12:48)
[2020-05-02] MEDS ORDERED: HUMULIN R100 UNIT/2 SC (12:50)
[2020-05-02] MEDS ORDERED: LOPE2C PO (12:52)
[2020-05-02] MEDS ORDERED: ONDA4ODT SL ×2 (13:15)
[2020-05-02] MEDS ORDERED: PANT40 PO (13:15)
[2020-05-02] MEDS ORDERED: Vancocin HCl250 MG PO ×2 (13:16)
--- NOTE | 2020-05-02 14:34 | NUR ---
DISCHARGE: PACKET PRINTED AND PT/PT BLUE LINE OPERATOR EDUCATED. PT BLUE LINE OPERATOR EDUCATED ON INSULIN LOW SS AND ADMINISTRATION. BLUE LINE OPERATOR REPORTS EXPERIENCE IN THIS AREA. PT ALSO TO RECIEVE HOME HEALTH. PT LEFT UNIT VIA WHEELCHAIR WITH BLUE LINE OPERATOR AND SIAT RANGEL.
== END 2020-05-02 14:00 | disposition home health service (06) | DRG 329 ==
LOC: ER 20:54 → SURS 04-15 01:37 → PCU 04-15 01:37 → SURS 04-16 11:37 → ICUW 04-18 00:30 → SURS 04-24 16:29
PROVIDERS: Family Medicine; Internal Medicine; Internal Medicine Critical Care Medicine; Physician Assistant; ADMIT Family Medicine
PROC: 0DB80ZZ Excision of Small Intestine, Open Approach (ICD-10-PCS; principal; 2020-04-18)
PROC: 02HV33Z Insertion of Infusion Device into Superior Vena Cava, Percutaneous Approach (ICD-10-PCS; 2020-04-18)
PROC: 0BH17EZ Insertion of Endotracheal Airway into Trachea, Via Natural or Artificial Opening (ICD-10-PCS; 2020-04-18)
PROC: 5A1955Z Respiratory Ventilation, Greater than 96 Consecutive Hours (ICD-10-PCS; 2020-04-18)
PROC: 3E043XZ Introduction of Vasopressor into Central Vein, Percutaneous Approach (ICD-10-PCS; 2020-04-18)
DX: K56.50 Intestinal adhesions [bands], unspecified as to partial versus complete obstruction (principal); R65.11 Systemic inflammatory response syndrome (SIRS) of non-infectious origin with acute organ dysfunction; R65.21 Severe sepsis with septic shock; N17.9 Acute kidney failure, unspecified; I50.22 Chronic systolic (congestive) heart failure; I13.0 Hypertensive heart and chronic kidney disease with heart failure and stage 1 through stage 4 chronic kidney disease, or unspecified chronic kidney disease; K55.9 Vascular disorder of intestine, unspecified; A04.72 Enterocolitis due to Clostridium difficile, not specified as recurrent; E87.1 Hypo-osmolality and hyponatremia; E87.2 Acidosis; E87.5 Hyperkalemia; I95.9 Hypotension, unspecified; I25.10 Atherosclerotic heart disease of native coronary artery without angina pectoris; E11.22 Type 2 diabetes mellitus with diabetic chronic kidney disease; E11.69 Type 2 diabetes mellitus with other specified complication; Z86.73 Personal history of transient ischemic attack (TIA), and cerebral infarction without residual deficits; Z90.49 Acquired absence of other specified parts of digestive tract; E66.9 Obesity, unspecified; J43.9 Emphysema, unspecified; H40.9 Unspecified glaucoma; E11.65 Type 2 diabetes mellitus with hyperglycemia
CPT/HCPCS: 0097U; 31720; 36415; 36430; 36556; 36600; 51702; 71045; 71046; 74176; 76857; 80048; 80053; 80069; 80202; 81001; 81003; 82803; 82947; 83605; 83690; 83735; 83880; 84100; 84145; 84478; 84484; 85014; 85018; 85025; 85610; 87040; 87070; 87077; 87186; 87205; 87324; 88307; 92610; 93005; 93010; 94002; 94003; 94640; 94667; 94668; 94760; 96361; 96374; 96375; 97110; 97162; 97166; 97530; 97535; 99285-25; A9270; A9270-GY; C1751; C9113; J0330; J0456; J0610; J0690; J0696; J0780; J1170; J1644; J1720; J1815; J1885; J1940; J1956; J2060; J2370; J2405; J2543; J2704; J3010; J3370; J3411; J7030; J7040; J7050; J7060; P9046; U0002

== ENCOUNTER 2020-05-05 06:55 | Inpatient (IN) | payer MEDICARE, OTHER ==
[~2020-05-05] VITALS: Ht 162.6 cm; Wt 110.2 kg
[~2020-05-05 06:55] MED LIST changes: +ACET325 PO; +BASAGLAR K100 UNIT/1 SC; +Banatrol1 EACH PO; +HUMULIN R100 UNIT/2 SC; +HYDR1TAB94 PO; +LOPE2C PO; +Lasix20 MG PO; +ONDA4ODT SL; +PANT40 PO; +Pepto-Bismol262 M1 PO; +Vancocin HCl250 MG PO
[2020-05-05 07:25] LABS: Hematocrit 30.3 % (37.0-53.0); Hemoglobin 9.1 g/dL (13.5-17.5); Mean Corpuscular Volume 100 fL (80-100); Mean Platelet Volume 9.5 fL (9.1-12.4); Platelet Count 356 K/mm3 (150-400); RDW Coefficient Variation 15.8 % (11.7-14.2); RDW Standard Deviation 57.8 fL (35.1-46.3); Red Blood Cell Count 3.03 M/mm3 (4.30-5.90); White Blood Cell Count 7.83 K/mm3 (4.00-11.30)
[2020-05-05 07:43] LABS: Albumin, Blood 1.7 g/dL (3.4-5.0); Albumin/Globulin Ratio 0.4 (0.8-1.8); Bilirubin, Total 0.4 mg/dL (0.1-1.0); Bun/Creatinine Ratio 13.7 (12.0-20.0); Calcium, Blood 7.8 mg/dL (8.5-10.1); Creatinine, Blood 2.04 mg/dL (0.60-1.20); Globulin, Blood 4.3 g/dL (2.2-4.0); Potassium, Blood 5.4 mmol/L (3.5-5.5); Troponin I 0.024 ng/mL (0.000-0.040)
[2020-05-05 07:47] LABS: BAND PERCENT MAN 17 % (0-8); BASOPHILS PERCENT MAN 0 % (0-2); EOSINOPHILS PERCENT MAN 0 % (0-6); LYMPHOCYTES ABSOLUTE MAN 0.62 K/mm3 (0.84-5.20); LYMPHOCYTES PERCENT MAN 8 % (21-46); MONOCYTES ABSOLUTE MAN 0.39 K/mm3 (0.16-1.47); MONOCYTES PERCENT MAN 5 % (4-13); NEUTROPHILS ABSOLUTE MAN 6.81 K/mm3 (1.96-9.15); SEG NEUTROPHILS PERCENT MAN 70 % (41-73); TOTAL CELLS COUNTED 100
[2020-05-06 04:28] LABS: BASOPHILS ABSOLUTE AUTO 0.02 K/mm3 (0.00-0.23); BASOPHILS PERCENT AUTO 0 % (0-2); EOSINOPHILS ABSOLUTE AUTO 0.02 K/mm3 (0.00-0.68); EOSINOPHILS PERCENT AUTO 0 % (0-6); Hematocrit 30.7 % (37.0-53.0); IMMATURE GRAN ABSOLUTE AUTO 0.09 K/mm3 (0.00-0.10); IMMATURE GRAN PERCENT AUTO 1 % (0-1); LYMPHOCYTES ABSOLUTE AUTO 0.65 K/mm3 (0.84-5.20); LYMPHOCYTES PERCENT AUTO 10 % (21-46); MONOCYTES ABSOLUTE AUTO 0.83 K/mm3 (0.16-1.47); MONOCYTES PERCENT AUTO 13 % (4-13); Mean Corpuscular HGB 30.3 pg (26.0-34.0); Mean Corpuscular HGB Conc 29.3 g/dL (31.5-36.5); Mean Corpuscular Volume 103 fL (80-100); Mean Platelet Volume 9.7 fL (9.1-12.4); NEUTROPHILS ABSOLUTE AUTO 4.63 K/mm3 (1.96-9.15); NEUTROPHILS PERCENT AUTO 74 % (41-73); Platelet Count 338 K/mm3 (150-400); RDW Coefficient Variation 16.1 % (11.7-14.2); RDW Standard Deviation 60.9 fL (35.1-46.3); Red Blood Cell Count 2.97 M/mm3 (4.30-5.90); White Blood Cell Count 6.24 K/mm3 (4.00-11.30)
[2020-05-06 04:54] LABS: Magnesium, Blood 1.9 mg/dL (1.6-2.4)
[2020-05-06 04:55] LABS: Albumin, Blood 1.7 g/dL (3.4-5.0); Albumin/Globulin Ratio 0.4 (0.8-1.8); BAND PERCENT MAN 8 % (0-8); BASOPHILS PERCENT MAN 0 % (0-2); Bilirubin, Total 0.4 mg/dL (0.1-1.0); Bun/Creatinine Ratio 13.5 (12.0-20.0); Calcium, Blood 7.8 mg/dL (8.5-10.1); Creatinine, Blood 2.45 mg/dL (0.60-1.20); EOSINOPHILS PERCENT MAN 0 % (0-6); Globulin, Blood 4.3 g/dL (2.2-4.0); LYMPHOCYTES ABSOLUTE MAN 0.68 K/mm3 (0.84-5.20); LYMPHOCYTES PERCENT MAN 11 % (21-46); METAMYELOCYTE ABSOLUTE MAN 0.12 K/mm3 (0.00-0.00); METAMYELOCYTE PERCENT MAN 2 % (0-0); MONOCYTES ABSOLUTE MAN 0.74 K/mm3 (0.16-1.47); MONOCYTES PERCENT MAN 12 % (4-13); NEUTROPHILS ABSOLUTE MAN 4.68 K/mm3 (1.96-9.15); Potassium, Blood 5.6 mmol/L (3.5-5.5); SEG NEUTROPHILS PERCENT MAN 67 % (41-73); TOTAL CELLS COUNTED 100
--- NOTE | 2020-05-06 07:42 | NUR ---
SHIFT SUMMARY PT ARRIVED FROM ER VIA STRETCHER; SLIDER SHEET USED TO MOVE PT TO BED; A&O X 3; TAKES TIME TO ANSWER; SPEECH GARBLED AT TIMES; PT CALLS OUT FREQUENTLY, CONSISTENT EDUCATION ON USE OF CALL LIGHT GIVEN; SKIN TEAR NOTED IN BUTTOCK, PICTURES IN CHART; PT C/O OF PAIN IN BACK AND BUTTOCK; DR. ALFONSO NOTIFIED AND NEW ORDER GIVEN FOR FENTANYL; ADMINISTERED 2 X THIS SHIFT; VSS; HR 80'S; O2 SATS >93 ON 2L NC; FREQUENT LOOSE STOOL; PT CHANGED AND REPOSITIONED FREQUENTLY T/O SHIFT; PT REFUSED DIGNI SHIELD; EDUCATION PROVIDED FOR HYGIENE/SKIN BREAKDOWN; CALL LIGHT IN REACH; BED IN LOWEST POSITION; REPORT GIVEN TO DAY SHIFT RN.
[2020-05-06 10:47] LABS: PCO2 Arterial 39.8 mmHg (35-45); PO2 Arterial 56.1 mmHg (80-100)
[2020-05-06 10:49] LABS: pH Blood Arterial 7.28 (7.35-7.45)
--- NOTE | 2020-05-06 17:56 | NUR ---
SHIFT SUMMARY THIS AM RESPONDING TO VERBAL STIMULI; FOR MAJORITY OF DAY PT ALERT AND ORIENTED x3. PT RESTING IN BED DURING SHIFT; PT REFUSES REPOSITIONING HOWEVER WILL ALLOW US TO BOOST HIM IN BED. ASSIST WITH TURNING FOR ATTENDS CHANGING. PT REPORTS PAIN TO BACK AND ABD; MEDICATED x1 PER EMAR. PT SOB WITH EXERTION, SPO2 >90% FOR MAJORITY OF SHIFT; TITRATED UP TO 4L 02 VIA NC. PT DENIES NAUSEA, DIZZINESS AND CHEST PAIN. VSS. NO OTHER ACUTE CHANGES NOTED DURING SHIFT. WILL CONTINUE TO MONITOR UNTIL REPORT GIVEN TO ONCOMING RN.
[2020-05-07 04:28] LABS: BASOPHILS ABSOLUTE AUTO 0.03 K/mm3 (0.00-0.23); BASOPHILS PERCENT AUTO 1 % (0-2); EOSINOPHILS ABSOLUTE AUTO 0.03 K/mm3 (0.00-0.68); EOSINOPHILS PERCENT AUTO 1 % (0-6); Hematocrit 29.3 % (37.0-53.0); Hemoglobin 8.6 g/dL (13.5-17.5); IMMATURE GRAN ABSOLUTE AUTO 0.11 K/mm3 (0.00-0.10); IMMATURE GRAN PERCENT AUTO 2 % (0-1); LYMPHOCYTES PERCENT AUTO 12 % (21-46); MONOCYTES PERCENT AUTO 14 % (4-13); Mean Corpuscular HGB 30.1 pg (26.0-34.0); Mean Corpuscular HGB Conc 29.4 g/dL (31.5-36.5); Mean Corpuscular Volume 102 fL (80-100); Mean Platelet Volume 9.7 fL (9.1-12.4); NEUTROPHILS ABSOLUTE AUTO 3.58 K/mm3 (1.96-9.15); NEUTROPHILS PERCENT AUTO 71 % (41-73); NRBC ABSOLUTE 0.02 K/mm3 (0.00-0.02); NRBC Auto 0.4 /100 WBC (0.0-0.2); Platelet Count 337 K/mm3 (150-400); Red Blood Cell Count 2.86 M/mm3 (4.30-5.90); White Blood Cell Count 5.05 K/mm3 (4.00-11.30)
[2020-05-07 04:52] LABS: Albumin, Blood 1.7 g/dL (3.4-5.0); Albumin/Globulin Ratio 0.4 (0.8-1.8); Bilirubin, Total 0.3 mg/dL (0.1-1.0); Bun/Creatinine Ratio 14.1 (12.0-20.0); Calcium, Blood 7.6 mg/dL (8.5-10.1); Creatinine, Blood 2.41 mg/dL (0.60-1.20); Globulin, Blood 4.1 g/dL (2.2-4.0); Magnesium, Blood 1.8 mg/dL (1.6-2.4); Potassium, Blood 4.8 mmol/L (3.5-5.5); Total Protein, Blood 5.8 g/dL (6.4-8.2)
[2020-05-07 05:26] LABS: BAND PERCENT MAN 3 % (0-8); BASOPHILS ABSOLUTE MAN 0.05 K/mm3 (0.00-0.23); BASOPHILS PERCENT MAN 1 % (0-2); EOSINOPHILS ABSOLUTE MAN 0.05 K/mm3 (0.00-0.68); EOSINOPHILS PERCENT MAN 1 % (0-6); LYMPHOCYTES PERCENT MAN 14 % (21-46); METAMYELOCYTE PERCENT MAN 4 % (0-0); MONOCYTES ABSOLUTE MAN 0.55 K/mm3 (0.16-1.47); MONOCYTES PERCENT MAN 11 % (4-13); NEUTROPHILS ABSOLUTE MAN 3.48 K/mm3 (1.96-9.15); SEG NEUTROPHILS PERCENT MAN 66 % (41-73); TOTAL CELLS COUNTED 100
--- NOTE | 2020-05-07 07:24 | NUR ---
SHIFT SUMMARY PT A&O X4; GARBLED SPEECH AT TIMES; TAKES TIME TO COMMUNICATE AND RESPOND; PT COMPLIANT W/ BOUNDARIES SET BY RN; VSS; HR NSR ON TELE; O2 SATS >93 ON 2L NC; RECTAL TUBE PLACED DUE TO FREQUENT LOOSE STOOL AND SKIN BREAKDOWN W/ BLEEDING NOTED; SIGNIFICANT REDNESS INCREASED FROM PREVIOUS SHIFT; ASSISTED PT W/ CALLS TO FRIENDS; CALL LIGHT IN REACH; BED IN LOWEST POSITION; REPORT GIVEN TO DAY SHIFT RN.
--- NOTE | 2020-05-07 17:41 | NUR ---
PT ARRIVED TO UNIT AT 1700 AOX3. PT DOES A LOT OF GRUMBLING, BUT CAN SPEAK CLEARLY. PT WAS CHANGED AND REPOSITIONED IN BED. CALL LIGHT WAS GIVEN TO HIM AND BEVERAGE WAS PROVIDED. PT IS WATCHING TV AT THIS TIME NO DISTRESS NOTED. RECTAL TUBE IS DRAINING WELL. WILL CONTINUE TO MONITOR.
--- NOTE | 2020-05-07 19:54 | NUR ---
SHIFT SUMMARY AND TRANSFER NOTE PT A&Ox3; IRRITABLE AT TIMES. PT RESTING IN BED, ASSISTS WITH REPOSITIONING. PT REPORTS PAIN TO BACK AND ABD. SOB WITH EXERTION, SPO2 >90% ON 3-4L O2 VIA NC. PT DENIES NAUSE AND DIZZINESS. DRESSING TO MIDLINE ABD CHANGES PRIOR TO TRANSFERING PT TO 356. RECTAL TUBE IN PLACE AND DRAINING. VSS. NO OTHER ACUTE CHANGES NOTED DURING SHIFT. REPORT GIVEN TO LETY ROSALES ASSUMING CARE OF PT. PT TRANSFERED AT 1650.
--- NOTE | 2020-05-08 04:49 | NUR ---
SHIFT SUMMARY PT HAS HAD NO ACUTE CHANGES THIS SHIFT, MEDICATED PER MAR FOR PAIN, NO OTHER C/O ANY KIND, PT HAS BEEN A&O, COOPERATIVE W/CARE, ABLE TO MAKE NEEDS KNOWN, SLEPT ON/OFF T/O THE NIGHT, BEDRESTING W/TV ON AT THIS TIME, CALL LIGHT IN REACH, WILL CONT TO MONITOR UNTIL REPORT GIVEN TO DAY RN.
[2020-05-08 05:23] LABS: Bun/Creatinine Ratio 17.1 (12.0-20.0); Calcium, Blood 7.8 mg/dL (8.5-10.1); Creatinine, Blood 1.75 mg/dL (0.60-1.20); Magnesium, Blood 1.6 mg/dL (1.6-2.4); Potassium, Blood 5.1 mmol/L (3.5-5.5)
--- NOTE | 2020-05-08 17:03 | NUR ---
1330- WET TO DRY DRESSING CHANGE DONE TO MID ABD
--- NOTE | 2020-05-08 17:06 | NUR ---
SUMMARY- PT ALERT TO SELF AND CIRCUMSTANCES. GROANS FREQ DURING WAKING HRS MUMBLES TO HIMSELF. SPEECH IS THICK AND HARD TO UNDERSTAND. PT FREQ C/O PAIN IN BACK THAT IS CHRONIC IN NATURE AND ABD PAIN FROM ACUTE SURGICAL INCISION. FENTANYL HELPFUL FOR RELEIF, PT FALLS ASLEEP AFTER ADMIN, BUT WHEN ASKES STATES PAIN 8/10. PT HAS A RECTAL TUBE, BALOON DEFLATED AROUND 1400 AND MOVED SLIGHTLY, ALOT OF AIR RELEASED. CHANGED ABD W-D DRESSING 1330. PT WAS UNABLE TO VOID, BLADDER SCAN SHOWED 450, CALLED DR RAMIREZ AND RECEIVED ORDERS. ST CATH FOR 550. STOPPED IVF, PT TOLERATING PO INTAKE. PERIRECTAL RED, APPLIED COPIOUS NUTRASHEILD. GLUT CREASE WITH STAGE 2 BREAKDOWN CREAM ALSO APPLEID A DRESSING WOULD NOT ADHERE TO AREA.
[2020-05-09 05:21] LABS: Calcium, Blood 8.2 mg/dL (8.5-10.1); Creatinine, Blood 1.72 mg/dL (0.60-1.20); Potassium, Blood 5.6 mmol/L (3.5-5.5)
--- NOTE | 2020-05-09 06:49 | NUR ---
SHIFT SUMMARY PT IS A&O X3. CALLS APPROPRIATELY. IS BEDREST AT THIS TIME, BEING TURNED Q2H WITH PILLOWS. PT DIDN'T VOID DURING THIS SHIFT BLADDER SCAN AT 0606 SHOWED 267 ML. ENCOURAGING FLUIDS FOR PT. MEDICATED X3 FOR PAIN. NO ACUTE CHANGES THIS SHIFT. NO OTHER NEEDS AT THIS TIME. WILL CONTINUE TO MONITOR UNTIL REPORT GIVEN TO DAY RN.
--- NOTE | 2020-05-09 17:10 | NUR ---
SHIFT SUMMARY PATIENT DROWSY, ORIENTED THIS SHIFT. PATIENT ABLE TO MAKE NEEDS KNOWN. PATIENT LAYING IN BED THROUGHOUT THIS SHIFT, WORKED WITH PT THIS AFTERNOON. PATIENT INTERACTS WITH VISITORS MUCH MORE THAN STAFF. PATIENT CONTENENT/INCONTENENT OF URINE THIS SHIFT. WOUND DRESSING CHANGED THIS AFTERNOON BY EJ Infante RN. PATIENT CURRENTLY SITTING UP IN BED WITH VISITOR AT BEDSIDE.
--- NOTE | 2020-05-10 06:07 | NUR ---
SHIFT SUMMARY PT HAS BEEN ON AND OFF CALL LIGHT FOR MOST OF THE NIGHT. PT BECOMES EASILY FRUSTRATED AND SHORT WITH STAFF. PT A/OX4, HOWEVER SPEECH AT TIMES IS GARBLED AND INCOMPREHENSIBLE. PT CONTINUES TO HAVE FREQUENT INCONTIENT LOOSE STOOLS. PT WAS ABLE TO SUCESSFULLY USE THE BED [place] ONCE THIS SHIFT. PT MEDICATED FOR PAIN PER EMAR. ABD WOUND WITHOUT CHANGES, NO S/S OF BLEEDING OR INFECTION. DRESSING C/D/I. BLADDER SCAN PERFORMED TOWARDS END OF SHIFT ONLY SHOWED 81 MLS IN BLADDER. PT REMAINS VERY EDEMATOUS T/O. NO ACUTE CHANGES TO REPORT OVERNIGHT. BED IN LOWEST POSITION, CALL LIGHT WITHIN REACH.
[2020-05-10 06:08] LABS: Calcium, Blood 8.1 mg/dL (8.5-10.1); Creatinine, Blood 1.72 mg/dL (0.60-1.20)
[2020-05-10 10:37] LABS: Hemoglobin 9.6 g/dL (13.5-17.5); Mean Corpuscular HGB 30.2 pg (26.0-34.0); Mean Corpuscular Volume 101 fL (80-100); Mean Platelet Volume 9.6 fL (9.1-12.4); Platelet Count 367 K/mm3 (150-400); RDW Standard Deviation 58.4 fL (35.1-46.3); Red Blood Cell Count 3.18 M/mm3 (4.30-5.90); White Blood Cell Count 6.94 K/mm3 (4.00-11.30)
[2020-05-10 10:46] LABS: Bun/Creatinine Ratio 19.1 (12.0-20.0); Calcium, Blood 8.8 mg/dL (8.5-10.1); Creatinine, Blood 1.62 mg/dL (0.60-1.20); Potassium, Blood 5.6 mmol/L (3.5-5.5)
--- NOTE | 2020-05-10 17:49 | NUR ---
SHIFT SUMMARY PATIENT ALERT AND ORIENTED THIS SHIFT. PATIENT GRUMBLES AND IS OFTEN DIFFICULT TO UNDERSTAND. PATIENT CONTENENT/INCONTENENT OF URINE AND STOOL. WOUND DRESSING CHANGED THIS AFTERNOON ON DEHISCED SURGICAL SITE. PATIENT REMAINS BEDBOUND AT THIS TIME, ABLE TO PROVIDE MINOR ASSISTANCE WITH TURNING AND REPOSITIONING. PATIENT REPORTS LESS PAIN THIS SHIFT THAN PREVIOUS SHIFT. PATIENT CURRENTLY SITTING UP IN BED WATCHING TELEVISION, EATING DINNER.
[2020-05-11 05:39] LABS: Bun/Creatinine Ratio 19.6 (12.0-20.0); Calcium, Blood 8.1 mg/dL (8.5-10.1); Creatinine, Blood 1.53 mg/dL (0.60-1.20); Potassium, Blood 4.9 mmol/L (3.5-5.5)
--- NOTE | 2020-05-11 06:22 | NUR ---
MAINFRAME SYSTEMS ENGINEER SUMMARY PT A/O X4 WITH GARBLED SPEECH. SPEECH PART IS NO CHANGE FROM DAY REPORT. MEDICATED FOR ABD INCISION PAIN TWICE ON MY SHIFT. DRESSING ON MIDLINE ABD SITE IS C.D.I. INCONT/CONT THROUGHOUT THE NIGHT. CALLS APPROPRIATELY SOMETIMES. MEPLIEX PLACED ON COCCYX AREA ON BED SORE. PT HAD ONE SMALL LIQUID BROWN BM OVERNIGHT. BED ALARM PLACED. CURRENTLY ON 4 L O2 NC MAINTAINING SATS AT 92% OR ABOVE. VSS, NOT ACUTE CHANGES.
--- NOTE | 2020-05-11 19:05 | NUR ---
ASSUMED CARE RECEIVED REPORT FROM LETY BECKER. ASSUMED CARE OF PT. PT RESTING COMFORTABLY AT THIS TIME, NO S/S ACUTE DISTRESS NOTED. FAMILY AT THE BEDSIDE. PT DENIES NEEDS AT THIS TIME. CALL LIGHT, POSSESSIONS IN REACH, CONTINUE TO MONITOR.
[2020-05-12 05:22] LABS: Bun/Creatinine Ratio 20.1 (12.0-20.0); Calcium, Blood 7.8 mg/dL (8.5-10.1); Creatinine, Blood 1.39 mg/dL (0.60-1.20); Potassium, Blood 4.5 mmol/L (3.5-5.5)
--- NOTE | 2020-05-12 05:41 | NUR ---
SHIFT SUMMARY PT RESTING COMFORTABLY, NO S/S ACUTE DISTRESS NOTED, WAS MONITORED EVERY 1-2 HOURS WITH NEEDS MET. PAIN MANAGED WITH MEDS PER EMAR, EFFECTIVE. MIDLINE ABD INCISION REMAINS APPROXIMATED WITH NINA, DRSG C/D/I, NO DRAINAGE, FOUL ODOR NOTED. PT C/O "PRESSURE" TO AREA, NO MASSES, EDEMA NOTED ON PALPATION. VSS, DENIES NEEDS AT THIS TIME. CALL LIGHT, POSSESSIONS IN REACH, BED IN LOW POSITION WITH ALARMS ON. WILL CONTINUE TO PROVIDE CARE NEEDED UNTIL DAY RN ASSUMES CARE.
--- NOTE | 2020-05-12 18:29 | NUR ---
NO ACUTE CHANGES NOTED THIS SHIFT, PT IS BEING DISCHARGED TO SNF IN [place] TOMORROW AT 11:15 AM. WILL CONTINUE TO MONITOR AND REPORT TO ONCOMING RN
--- NOTE | 2020-05-13 02:41 | NUR ---
SHIFT SUMMARY HAS BEEN AWAKE AT INTERVALS THIS SHIFT. REMAINS INCONT OF FECES, TAKING PO VANCO FOR C-DIFF TX. ALERT AND ORIENTED X 4. NO VOICED ACUTE DISTRESS. CALL LIGHT IN REACH
[2020-05-13 08:46] LABS: Bun/Creatinine Ratio 19.4 (12.0-20.0); Calcium, Blood 7.6 mg/dL (8.5-10.1); Creatinine, Blood 1.39 mg/dL (0.60-1.20); Potassium, Blood 4.3 mmol/L (3.5-5.5)
--- NOTE | 2020-05-13 11:39 | NUR ---
HE HAS BEEN ASSESSED AND ABD WOUND CARE DONE ORDERED. WET TO DRY. OLD DRAINAGE PINK AND BROWNISH GREEN. NINA INTACT ABOVE AND BELOW OPENING. HE HAS BEEN INCONTINENT OF URINE AND STOOL. HE STILL GETS IV DIURETIC. CREAM APPLIED TO SWOLLEN SCROTUM. FOAM PATCH IN PLACE ON COCCYX. EDEMA NOTED. HE ATE BREAKFAST AND IS NOW READY FOR TRANSPORT TO SNF IN [place]. WAITING FOR THE COVID TEST RESULT. HE WILL TRANSPORT IN A RECLINING W/C. WE WILL USE THE LIFT TO GET HIM THERE.
--- NOTE | 2020-05-13 12:36 | NUR ---
Discharged to [facility] at 1225. HE LEFT IN A RECLINING W/C BY W/C DAVID. WE USED THE LIFT TO GET HIM IN THE CHAIR. HE IS IN ATTENDS AND PJ'S. HE HAS BEEN INCONTINENT OF URINE AND STOOL. HE AND HIS VISITOR HAVE ALL HIS BELONGINGS. I GAVE HIM PO PAIN MEDICINE BEFORE HE LEFT. IT WAS FOR HIS USUAL ABD PAIN AND BACK PAIN. I TRIED MULTIPLE TIMES TO CALL REPORT TO [phone]. NO ANSWER.
--- NOTE | 2020-05-13 15:48 | NUR ---
ELIZABETH DAVIDSON CALLED ME FROM [facility]. REPORT GIVEN. WILL FAX OXY HARD SCRIPT TO THEIR PREFERRED PHARMACY. WILL FAX HARD COPY OXY, LOWW SLIDING SCALE AND A COPY OF THE COVID RESULTS TO THE SNF.
[2020-05-13] MEDS ORDERED: ATOR40TA PO ×2 (16:08)
[2020-05-13] MEDS ORDERED: OXYC5 PO ×2 (16:09)
[2020-05-13] MEDS ORDERED: CLOP75 PO ×2 (16:09)
[2020-05-13] MEDS ORDERED: VISBIOME PO ×2 (16:10)
[2020-05-13] MEDS ORDERED: FURO40 PO ×2 (16:11)
== END 2020-05-13 12:25 | DRG 682 ==
LOC: ER 06:55 → ERHOLD 15:48 → PCU 20:16 → MEDS 05-07 16:52
PROVIDERS: Emergency Medicine; Internal Medicine; ADMIT Internal Medicine
DX: N17.9 Acute kidney failure, unspecified (principal); G93.41 Metabolic encephalopathy; I13.0 Hypertensive heart and chronic kidney disease with heart failure and stage 1 through stage 4 chronic kidney disease, or unspecified chronic kidney disease; Z20.828 Contact with and (suspected) exposure to other viral communicable diseases; I50.22 Chronic systolic (congestive) heart failure; Z68.42 Body mass index [BMI] 45.0-49.9, adult; A04.72 Enterocolitis due to Clostridium difficile, not specified as recurrent; E11.22 Type 2 diabetes mellitus with diabetic chronic kidney disease; N18.3 Chronic kidney disease, stage 3 (moderate); Z79.4 Long term (current) use of insulin; J44.9 Chronic obstructive pulmonary disease, unspecified; E87.5 Hyperkalemia; Z86.73 Personal history of transient ischemic attack (TIA), and cerebral infarction without residual deficits; D63.1 Anemia in chronic kidney disease; E88.09 Other disorders of plasma-protein metabolism, not elsewhere classified; E78.5 Hyperlipidemia, unspecified; E66.9 Obesity, unspecified; Z87.891 Personal history of nicotine dependence; E11.65 Type 2 diabetes mellitus with hyperglycemia; E86.0 Dehydration
CPT/HCPCS: 36415; 36600; 70450; 71046; 74176; 80048; 80053; 82803; 82947; 83735; 83880; 84132; 84484; 85025; 85027; 93005; 93010; 94640; 94760; 96360; 97110; 97162; 97530; 99285-25; A9270; A9270-GY; C9113; J0610; J1644; J1815; J1940; J3010; J7030; J7120; U0003

== ENCOUNTER 2020-06-16 18:04 | Inpatient (IN) | payer MEDICARE, OTHER ==
[~2020-06-16] VITALS: Ht 167.6 cm; Wt 118.0 kg
[~2020-06-16 18:04] MED LIST changes: -ACET325 PO; -BASAGLAR K100 UNIT/1 SC; -HUMULIN R100 UNIT/2 SC; -PANT40 PO
[2020-06-16 18:52] LABS: BASOPHILS ABSOLUTE AUTO 0.01 K/mm3 (0.00-0.23); BASOPHILS PERCENT AUTO 0 % (0-2); EOSINOPHILS ABSOLUTE AUTO 0.07 K/mm3 (0.00-0.68); EOSINOPHILS PERCENT AUTO 1 % (0-6); Hematocrit 24.2 % (37.0-53.0); IMMATURE GRAN ABSOLUTE AUTO 0.16 K/mm3 (0.00-0.10); IMMATURE GRAN PERCENT AUTO 2 % (0-1); LYMPHOCYTES ABSOLUTE AUTO 0.46 K/mm3 (0.84-5.20); LYMPHOCYTES PERCENT AUTO 5 % (21-46); MONOCYTES ABSOLUTE AUTO 0.31 K/mm3 (0.16-1.47); MONOCYTES PERCENT AUTO 3 % (4-13); Mean Corpuscular HGB 28.7 pg (26.0-34.0); Mean Corpuscular HGB Conc 28.9 g/dL (31.5-36.5); Mean Corpuscular Volume 99 fL (80-100); NEUTROPHILS ABSOLUTE AUTO 8.13 K/mm3 (1.96-9.15); NEUTROPHILS PERCENT AUTO 89 % (41-73); Platelet Count 372 K/mm3 (150-400); RDW Coefficient Variation 17.2 % (11.7-14.2); RDW Standard Deviation 58.9 fL (35.1-46.3); Red Blood Cell Count 2.44 M/mm3 (4.30-5.90); White Blood Cell Count 9.14 K/mm3 (4.00-11.30)
[2020-06-16 18:55] LABS: Albumin/Globulin Ratio 0.5 (0.8-1.8); Bilirubin, Total 0.2 mg/dL (0.1-1.0); Bun/Creatinine Ratio 37.8 (12.0-20.0); Calcium, Blood 8.3 mg/dL (8.5-10.1); Creatinine, Blood 3.36 mg/dL (0.60-1.20); Globulin, Blood 4.2 g/dL (2.2-4.0); Potassium, Blood 5.8 mmol/L (3.5-5.5); Total Protein, Blood 6.2 g/dL (6.4-8.2)
[2020-06-16] MEDS ORDERED: HUMULIN R100 UNIT/2 SC (20:14)
[2020-06-16] MEDS ORDERED: BASAGLAR K100 UNIT/1 SC (20:15)
[2020-06-16] MEDS ORDERED: ZINC OXIDE 10% TOP (20:17)
[2020-06-16] MEDS ORDERED: ASPI81CH PO (20:52)
[2020-06-16] MEDS ORDERED: ALLO100 PO (20:52)
[2020-06-16] MEDS ORDERED: ATOR20 PO (20:53)
[2020-06-16] MEDS ORDERED: Vitamin D2000 UNIT PO (20:53)
[2020-06-16] MEDS ORDERED: FERSU300 PO (20:54)
[2020-06-16] MEDS ORDERED: FURO40 PO (20:54)
[2020-06-16] MEDS ORDERED: MELA3 PO (20:55)
[2020-06-16] MEDS ORDERED: Hair, Skin & N1 EACH PO (20:56)
[2020-06-16] MEDS ORDERED: TAMS.4ER PO (20:56)
[2020-06-16] MEDS ORDERED: CIPR500 PO (20:57)
[2020-06-16] MEDS ORDERED: ACET325 PO (20:57)
[2020-06-16] MEDS ORDERED: PROBIOTIC PO (20:59)
[2020-06-16] MEDS ORDERED: PANT40 PO (20:59)
[2020-06-16] MEDS ORDERED: ALBU90OI INH (21:00)
[2020-06-16] MEDS ORDERED: Artificial Tear15 ML BOTHEYES (21:02)
[2020-06-16] MEDS ORDERED: Percocet 5-3251 EACH PO (21:03)
[2020-06-16 21:21] LABS: International Normalized Ratio 1.11; Prothrombin Time Results 11.8 Sec (9.7-11.5)
[2020-06-16 21:56] LABS: Percent Saturation 19.2 % (20.0-50.0)
[2020-06-16] MEDS ORDERED: LIDO5TO TOP (23:28)
--- NOTE | 2020-06-17 | NUR ---
PATIENT BEING ADMITTED TO MEDICAL FLOOR FOR RENAL FAILURE AND PAIN. HE WAS BROUGHT IN BY EMS FROM [facility] DUE TO INCREASE IN SWELLING ALL OVER. ARRIVED VIA GURNEY, TRANSFERRED TO BED USING A SLIDING SHEET. AOX3, VERY GRUMPY, RUDE, AND EVEN THREATEN HVAC SALES ENGINEER RAISING HIS FIST LIKE HE WAS GOING TO HIT HER. INFORMED HIM NO HITTING IS ALLOWED. HE JUST SAID HE IS TIRED AND COLD, DOES NOT KNOW WHY HE CAME HERE. STATES HE HAS HAD THE EDEMA ALL OVER SINCE HIS SURGERY AND NO ONE HAS DONE ANYTHING ABOUT IT. LUNG SOUNDS ARE DIMINISHED T/O, TACHYPNEA AT TIMES. NO COUGH OR CONGESTION. HR VERY DISTENT AND DIFFICULT TO HEAR. ABDOMIN ROUND DISTENDED, AND BT HYPOACTIVE. 3+ EDEMA FROM TOES UP TO TRUNK AND BUE. ALL PITTING. SCROTUM IS ALSO VERY EDEMATOUS. CATHETER IS PATENT AND DRAINING TEA SEDIMENT URINE. ABDOMIN WITH SURGICAL DEHISED WOUND, REMOVED DRESSING WHICH WAS SATURATED, REMOVED CALCIUM ALGINATE. THERE ARE TWO OPEN AREAS TOP MEASURES 0.25X0.25 SHALLOW, SLOUGH, RED SURROUNDING. BOTTOM IS LARGER AT 3X1 ABOUT 2CM DEEP. SLOUGH IN WOUND BED WITH 3 EXPOSED STITICHES. BETWEEN THE TWO WOUNDS IS A STITCH THAT IS STARTING TO MAKE ITS WAY TO THE SURFACE. BOTH AREAS LOOK INFECTED. CLEANSED WITH CLEANSER, WOUND CULTURE TAKEN, APPLIED CALCIUM ALGINATE, EDUDRY, TAPE TO SECURE. BOTTOM ALSO VERY RED AND EXCORAGED, WITH BREAKDOWN, STOOL CRUSTED ON BOTTOM. CLEANSED AND APPLIED NEW ATTENDS. PICTURES TAKEN AND ARE IN CHART. SPOKE TO DR. SUAREZ AND GOT SEVERAL ORDERS FOR WOUND CARE, ICE CHIPS, WOUND CULTURE AND UA, AND SHE SAID NOT TO CHANGE THE CATHETER AT THIS TIME JUST THE BAG WHICH WAS DONE. CALL LIGHT WAS GIVEN. IV FLUIDS ARE INFUSING. WILL START ON ORDERS.
[2020-06-17 00:18] LABS: BASOPHILS PERCENT AUTO 0 % (0-2); EOSINOPHILS ABSOLUTE AUTO 0.07 K/mm3 (0.00-0.68); EOSINOPHILS PERCENT AUTO 1 % (0-6); Hematocrit 23.2 % (37.0-53.0); Hemoglobin 6.6 g/dL (13.5-17.5); IMMATURE GRAN ABSOLUTE AUTO 0.18 K/mm3 (0.00-0.10); IMMATURE GRAN PERCENT AUTO 2 % (0-1); LYMPHOCYTES ABSOLUTE AUTO 0.45 K/mm3 (0.84-5.20); LYMPHOCYTES PERCENT AUTO 5 % (21-46); MONOCYTES ABSOLUTE AUTO 0.38 K/mm3 (0.16-1.47); MONOCYTES PERCENT AUTO 4 % (4-13); Mean Corpuscular HGB 28.3 pg (26.0-34.0); Mean Corpuscular HGB Conc 28.4 g/dL (31.5-36.5); Mean Corpuscular Volume 100 fL (80-100); NEUTROPHILS ABSOLUTE AUTO 7.94 K/mm3 (1.96-9.15); NEUTROPHILS PERCENT AUTO 88 % (41-73); Platelet Count 364 K/mm3 (150-400); RDW Coefficient Variation 17.4 % (11.7-14.2); RDW Standard Deviation 58.4 fL (35.1-46.3); Red Blood Cell Count 2.33 M/mm3 (4.30-5.90); White Blood Cell Count 9.02 K/mm3 (4.00-11.30)
[2020-06-17 00:31] LABS: Albumin, Blood 2.5 g/dL (3.4-5.0); Albumin/Globulin Ratio 0.6 (0.8-1.8); Bilirubin, Total 0.2 mg/dL (0.1-1.0); Bun/Creatinine Ratio 36.7 (12.0-20.0); Creatinine, Blood 3.3 mg/dL (0.60-1.20); Globulin, Blood 3.9 g/dL (2.2-4.0); Potassium, Blood 5.6 mmol/L (3.5-5.5); Total Protein, Blood 6.4 g/dL (6.4-8.2)
[2020-06-17 01:07] LABS: Bun/Creatinine Ratio 36.3 (12.0-20.0); Calcium, Blood 8.1 mg/dL (8.5-10.1); Creatinine, Blood 3.33 mg/dL (0.60-1.20); Potassium, Blood 5.6 mmol/L (3.5-5.5)
--- NOTE | 2020-06-17 02:20 | NUR ---
DANIELE IS RESTING COMFORTABLY WITH NO SIGN OF DISTRESS. IV INFUSING WITH NO DIFFICULTY. CATHETER IS PATENT AND DRAINING. CALL LIGHT IS IN REACH.
--- NOTE | 2020-06-17 03:49 | NUR ---
DANIELE WOKE UP, CALLED OUR FOR NURSE. HE ASKED FOR SOME ICE CHIPS HIS MOUTH WAS REALLY DRY. BEFORE I WAS ABLE TO LEAVE THE ROOM, HE HAD PUSHED HIS CALL LIGHT AGAIN TWICE. ASKED HIM IF THERE WAS ANYTHING ELSE HE NEEDED, HE SAID NO. ASKED IF HE NEEDED TO BE REPOSITIONED OR IF HE WAS IN PAIN. ANSWER WAS NO. "I JUST WANT ICE CHIPS NOW." HE SAID. HAD SCRAPE GATHERER GO GET HIM ICE CHIPS.
--- NOTE | 2020-06-17 05:00 | NUR ---
035- CHARGE NURSE MENDY REPORTED SHE RECEIVED A CALL FROM SEMI DRIVER ADRI ASKING HER TO CHECK ON THE PATIENT IN ROOM 328 HIS HR JUST DROPPED DOWN TO 26 BPM. BEFORE SHE COULD REACH THE ROOM SHE GOT ANOTHER CALL BACK STATING HE WENT ASYSTOLE. 035- ASSISTANCE WAS CALLED TO ROOM 328, I JUST GOT LUNCH AND WAS IN THE BREAKROOM. I WAS COMING OUT OF THE BREAKROOM SAW THE MENDY CHARGE PUSHING CRASH CART INTO THE ROOM. RAN TO THE ROOM, TO FIND THE PATIENT BLUE, WITH NO PULSE. CPR WAS STARTED TILL CODE WAS VERIFIED. 035-TIME OF WAS CALLED. 035- DR. SUAREZ ARRIVED. INFORMED HER WHAT HAPPENED THAT AROUND 0350 THE PATIENT WAS AWAKE ASKING FOR ICE CHIPS DENIED PAIN, OR DISCOMFORT. STATED HE JUST WANTED ICE CHIPS. DEBEADER JUST BROUGHT HIM ICE CHIPS AND LEFT THE ROOM WHEN CHARGE NURSE GOT THE CALL REGARDING HR. 042-DR. SUAREZ CONTACTED THE DAUGHTER VICKIE AND INFORMED HER OF THE PASSING. I SPOKE TO HER FOR A MINUTE TO SEE IF SHE WOULD LIKE TO COME SEE HER FATHER, SHE SAID YES. SHE ASKED IF WE COULD GET A MESSAGE TO HER BROTHER HE IS IN [facility] AND INFORM HIM. SHE REQUEST [facility] WHEN READY. 0430-CLEANED UP ROOM, REMOVED IV, CATHETER, AND PLACED YELLOW GOWN ON PATIENT. GETTING HIM READY FOR THE FAMILY TO ARRIVE. 0440- CALLED [facility], SPOKE TO JOSE RAULAL GLORIA AND ASKED HER TO INFORM PATIENTS SON DANIELE BURDICK JR OF THE PASSING. SHE SAID SHE WOULD GIVE HIM THE MESSAGE. 044-CALLED [facility] AND INFORMED CALDERON THAT MR. BURDICK WILL NOT BE RETURNING DUE TO HIS PASSING. 0500-AWAITING FAMILY TO ARRIVE.
--- NOTE | 2020-06-17 06:09 | NUR ---
VICKIE DAUGHTER ARRIVED AT 0530, IS IN ROOM VISITING THE PATIENT AND HAS BEEN NOTIFYING THE FAMILY.
--- NOTE | 2020-06-17 06:24 | NUR ---
VICKIE DAUGHTER JUST LEFT. CALLED [facility]. GAVE THEM THE INFORMATION ON THE PATIENT. THEY WILL WAIT FOR A CALL FOR SCOURER. WE ARE WAITING FOR THE DONOR LINE TO RETURN CALL AND RELEASE THE PATIENT.
--- NOTE | 2020-06-17 12:03 | NUR ---
RECIEVED CALL FROM [facility], THEY REPORTED THAT THE FAMILY DECLINED DONATION. [facility] NOTIFIED THATH THE PT IS CLEARED FOR PICK-UP.
== END 2020-06-17 13:49 | DRG 682 ==
LOC: ER 18:04 → MEDS 22:09
PROVIDERS: Student in an Organized Health Care Education/Training Program; ADMIT Internal Medicine
DX: N17.9 Acute kidney failure, unspecified (principal); G93.41 Metabolic encephalopathy; I50.22 Chronic systolic (congestive) heart failure; I69.351 Hemiplegia and hemiparesis following cerebral infarction affecting right dominant side; I13.0 Hypertensive heart and chronic kidney disease with heart failure and stage 1 through stage 4 chronic kidney disease, or unspecified chronic kidney disease; Z68.42 Body mass index [BMI] 45.0-49.9, adult; T81.30XA Disruption of wound, unspecified, initial encounter; Z66 Do not resuscitate; E87.5 Hyperkalemia; Z79.4 Long term (current) use of insulin; I25.10 Atherosclerotic heart disease of native coronary artery without angina pectoris; E78.5 Hyperlipidemia, unspecified; Z87.891 Personal history of nicotine dependence; Z90.49 Acquired absence of other specified parts of digestive tract; G47.33 Obstructive sleep apnea (adult) (pediatric); H40.9 Unspecified glaucoma; I25.2 Old myocardial infarction; Z79.82 Long term (current) use of aspirin; E86.1 Hypovolemia; I46.9 Cardiac arrest, cause unspecified; E11.22 Type 2 diabetes mellitus with diabetic chronic kidney disease; E66.01 Morbid (severe) obesity due to excess calories; N18.4 Chronic kidney disease, stage 4 (severe); T50.915A Adverse effect of multiple unspecified drugs, medicaments and biological substances, initial encounter; D63.1 Anemia in chronic kidney disease
CPT/HCPCS: 36415; 71045; 74176; 80048; 80053; 82728; 82947; 83540; 83550; 83605; 83880; 84484; 85025; 85610; 86850; 86900; 86901; 87070; 87075; 87077; 87186; 87205; 93005; 93010; 96365; 99285-25; A9270; A9270-GY; J0610; J1815; J7030; P9046